=== PATIENT | female | born 1945 | race Caucasian/White ===

== ENCOUNTER → 2016-12-28 | Outpatient (CLI) | payer MEDICARE ==
--- NOTE | 2016-12-28 14:10 | KCIC ---
Examination: MRI of the right shoulder without contrast. HISTORY History of right shoulder pain, decreased range of motion. COMPARISON None available. TECHNIQUE Multiplanar, multisequence MR imaging of the right shoulder was performed without contrast. FINDINGS The long head of the biceps tendon is within the bicipital groove. The attachment of the long head of the biceps tendon to superior labral anchor grossly appears intact. The attachment of the subscapularis tendon grossly appears intact. There is moderate increased signal identified in the supraspinatus, infraspinatus tendon likely due tendinosis. On series 9 image #12 there is a small focus of increased T2 signal identified in the interstitial portion of the supraspinatus tendon extending towards the bursal side could be a smaller tear. There is faint increased signal identified in the undersurface of the infraspinatus tendon. Some of the fibers of the infraspinatus tendon at its attachment are slightly frayed. Small amount of fluid identified in the subacromial subdeltoid bursa. Moderate acromioclavicular joint osteoarthrosis identified. Mild the acromion is type 2. Mild increased signal identified throughout the labrum likely degeneration. Moderate acromioclavicular joint osteoarthrosis. Small shoulder joint effusion is identified prevoid of the muscle bulk and grossly appears unremarkable. The teres minor tendon grossly appears intact. IMPRESSION - Mild increased signal identified in the interstitium of the supraspinatus tendon at its attachment to greater tuberosity in the midportion with extension towards the bursa probably bursal sided tear with a small amount of fluid identified in subacromial subdeltoid bursa. No evidence of full-thickness tear identified. - Moderate tendinosis supraspinatus, infraspinatus tendons. There is mild fraying of the infraspinatus tendon at its attachment to the greater tuberosity. - Moderate degenerative changes acromioclavicular joint, glenohumeral joint. - Mild degeneration of the labrum. Electronically signed by: Walter Dozier (Dec 28, 2016 14:09:48)
== END | disposition home or self-care (01) ==
LOC: KCIC MRI 12:57
PROVIDERS: ATTEND Orthopaedic Surgery Sports Medicine
DX: M75.101 Unspecified rotator cuff tear or rupture of right shoulder, not specified as traumatic (principal)
CPT/HCPCS: 73221

== ENCOUNTER → 2017-12-17 | Outpatient (CLI) | payer MEDICARE | END | disposition home or self-care (01) | LOC: KCIC MAMMO 11:45 | DX: Z12.31 Encounter for screening mammogram for malignant neoplasm of breast (principal) | CPT/HCPCS: 77067 ==

== ENCOUNTER → 2018-03-13 | Outpatient (CLI) | payer MEDICARE | END | disposition home or self-care (01) | LOC: KCIC MRI 16:32 | DX: M51.36 Other intervertebral disc degeneration, lumbar region (principal); M43.16 Spondylolisthesis, lumbar region; M51.46 Schmorl's nodes, lumbar region | CPT/HCPCS: 72148 ==

== ENCOUNTER → 2018-12-18 | Outpatient (CLI) | payer MEDICARE ==
--- NOTE | 2018-12-18 14:53 | KCIC ---
Bilateral digital screening mammograms with 3-D tomosynthesis: Reason for examination: Routine screening. Comparison is made to previous studies dated 12/17/2017 and 11/08/2016. Bilateral mammograms in CC and oblique projections were obtained with 2-D imaging and 3-D tomosynthesis imaging on a Siemens Inspiration unit and reviewed on the workstation. Interpretation was made with the benefit of CAD. The skin and nipples show no abnormalities. No abnormal axillary lymph nodes are seen. The breast parenchyma shows scattered fatty and fibroglandular density. (Breast density: Category B.) There continues to be a small nodular density in the 8:00 position of the left breast anteriorly which is stable. There are no new dominant masses, suspicious calcifications or architectural distortion. Benign calcifications are present. Impression: No evidence of malignancy. Recommend routine screening. BI-RAD Category 2: Benign. "Our facility is accredited by the [employer] Mammography Program." This patient's information has been entered into a reminder system for the patient to be notified with the results of her examination and a target date for the next mammogram. Electronically signed by: Dominique Arnett MD (12/18/2018 2:49 PM) [id number]
== END | disposition home or self-care (01) ==
LOC: KCIC MAMMO 09:56
PROVIDERS: ATTEND Nurse Practitioner Family
DX: Z12.31 Encounter for screening mammogram for malignant neoplasm of breast (principal)
CPT/HCPCS: 77063; 77067

== ENCOUNTER 2019-04-08 19:08 | Inpatient (IN) | payer MEDICARE ==
[~2019-04-08] VITALS: Ht 165.1 cm; Wt 78.0 kg
[2019-04-08] MEDS ORDERED: IV NORMAL SALINE 1000ML BAG 1,000 ML IV SCH (19:33)
[2019-04-08 19:42] LABS: BASO % 0 % (0-3); EOS # 0.2 x10^3/uL (0.0-0.7); EOS % 1 % (0-3); HEMATOCRIT 43.6 % (36.0-47.0); HEMOGLOBIN 14.4 g/dL (12.0-15.5); LYMPH # 1.5 x10^3/uL (1.0-4.8); LYMPH % 8 % (24-48); MEAN CORPUSCULAR HEMOGLOBIN 29 pg (25-35); MEAN CORPUSCULAR HGB CONC 33 g/dL (31-37); MEAN CORPUSCULAR VOLUME 87 fL (79-100); MONO % 5 % (0-9); NEUT # 15.5 x10^3uL (1.8-7.7); NEUT % 85 % (31-73); PLATELET COUNT 296 x10^3/uL (140-400); RED BLOOD COUNT 5.02 x10^6/uL (3.50-5.40); WHITE BLOOD COUNT 18.2 x10^3/uL (4.0-11.0)
[2019-04-08] MEDS ORDERED: ONDANSETRON PF 4 MG/2 ML VIAL. IV ONE (19:45)
[2019-04-08] MEDS ORDERED: fentaNYL PF VIAL 100 MCG/2 ML VIAL IV ONE (19:45)
[2019-04-08 19:51] LABS: CALCIUM 8.5 mg/dL (8.5-10.1); CREATININE 1.1 mg/dL (0.6-1.0); GFR 48.4; POTASSIUM 3.3 mmol/L (3.5-5.1); PROTHROMBIN TIME PATIENT 12.8 SEC (11.7-14.0)
[2019-04-08 19:57] LABS: ALBUMIN 3.9 g/dL (3.4-5.0); TOTAL BILIRUBIN 0.4 mg/dL (0.2-1.0); TOTAL PROTEIN 7.8 g/dL (6.4-8.2)
[2019-04-08 20:05] LABS: % EOS 2 % (0-5); % LYMPHS 12 % (24-48); % MONOS 4 % (0-10); % SEGS 82 % (35-66); PLT ESTIMATE ADEQUATE (ADEQUATE)
[2019-04-08 20:05] LABS: BILIRUBIN,URINE NEGATIVE (NEG); CLARITY,URINE CLEAR; COLOR,URINE YELLOW; NITRITE,URINE NEGATIVE (NEG); PROTEIN,URINE 100 mg/dL (NEG-TRACE); UROBILINOGEN,URINE 0.2 mg/dL (0.2 mg/dL)
[2019-04-08 20:11] LABS: SQUAMOUS EPITHELIAL CELL,UR FEW /LPF
[2019-04-08 20:12] LABS: BACTERIA,URINE 0 /HPF (0-FEW)
[2019-04-08 20:13] LABS: AMORPHOUS SEDIMENT,UR PRESENT /HPF
[2019-04-08] MEDS ORDERED: IV NORMAL SALINE 1000ML BAG 1,000 ML IV ONE (20:30)
[2019-04-08] MEDS ORDERED: PIPERACILLIN/TAZOBACTAM 3.375 GM in IV NORMAL SALINE 50ML 50 ML IV ONE (20:30)
--- NOTE | 2019-04-08 20:50 | RAD ---
CT scan abdomen and pelvis without contrast 04/08/2019 CLINICAL HISTORY: Right lower quadrant abdominal pain. TECHNIQUE: Unenhanced, contiguous, 5 mm axial sections were obtained through abdomen and pelvis. One or more of the following individualized dose reduction techniques were utilized for this study: 1. Automated exposure control. 2. Adjustment of the mA and/or kV according to patient size. 3. Use of iterative reconstruction technique. FINDINGS: Images through the lung bases demonstrate minimal dependent subsegmental atelectasis bilaterally. The liver parenchyma has a decreased attenuation consistent with fatty infiltration. The spleen, pancreas, adrenal glands and kidneys are within normal limits. Atherosclerotic calcification of the abdominal aorta is seen. The abdominal aorta tapers normally. Small calcified gallstones are seen within the gallbladder. No free fluid or free air is seen within the abdomen. Air and stool is seen throughout the colon. Appendicoliths are seen within the appendix. The appendix is dilated measuring 1.5 cm in diameter. It has a thickened wall. Increased density is seen within the adjacent fat. These findings are consistent with acute appendicitis. No abnormal fluid collection is seen to suggest evidence of an abscess. Images through the pelvis. The urinary bladder distended with urine. No free fluid is seen. Very mild S-shaped curvature of the thoracolumbar spine is seen. Degenerative changes are seen involving the lower thoracic and throughout the lumbar spine and both hips. IMPRESSION: Findings are seen consistent with acute appendicitis. Electronically signed by: Pablo Chance MD (04/08/2019 8:47 PM) [facility]
[2019-04-08] MEDS ORDERED: cefTRIAXone IV Push 1 GM VIAL. IVP ONE (21:00)
[2019-04-08] MEDS ORDERED: BUPIVAC MPF-EPI 0.5%-1:200000 30 ML VIAL. ONE (21:12)
[2019-04-08] MEDS ORDERED: levOFLOXacin PER PHARMACY. MC PRN (21:15)
[2019-04-08] MEDS ORDERED: ONDANSETRON PF 4 MG/2 ML VIAL. IV PRN ×2 (21:15→22:15)
[2019-04-08] MEDS ORDERED: ACETAMINOPHEN 500 MG TABLET PO PRN (21:15)
[2019-04-08] MEDS ORDERED: POTASSIUM CL 20MEQ D5-0.45NACL 1,000 ML IV SCH (21:15)
[2019-04-08] MEDS ORDERED: fentaNYL PF VIAL 100 MCG/2 ML VIAL IV PRN ×3 (21:15→22:15)
--- NOTE | 2019-04-08 21:25 | PHYS DOC ---
Past Medical History Past Medical History: Diabetes-Type II, Hypertension, Stroke Past Surgical History: Hysterectomy Alcohol Use: None Drug Use: None Adult General Chief Complaint Chief Complaint: ABDOMINAL PAIN HPI HPI Patient is a 74 year old female who presents with complaining of lower abdominal pain. Patient complaining of gradual onset of right lower quadrant pain for the last several hours as a constant aching and sharp pain with nausea and anorexia. Patient denies fever and chills, diarrhea and constipation, urinary symptom, history of the same pain. Patient said the pain getting force with movement and activity. Patient rated her pain 7/10. Review of Systems Review of Systems Constitutional: Denies fever or chills [] Eyes: Denies change in visual acuity, redness, or eye pain [] HENT: Denies nasal congestion or sore throat [] Respiratory: Denies cough or shortness of breath [] Cardiovascular: No additional information not addressed in HPI [] GI: Reports abdominal pain, nausea, denies vomiting, bloody stools or diarrhea [] : Denies dysuria or hematuria [] Musculoskeletal: Denies back pain or joint pain [] Integument: Denies rash or skin lesions [] Neurologic: Denies headache, focal weakness or sensory changes [] Endocrine: Denies polyuria or polydipsia [] All other systems were reviewed and found to be within normal limits, except as documented in this note. Current Medications Current Medications Current Medications Medications (Trade) Dose Ordered Sig/[facility] Start Time Stop Time Status Last Admin Dose Admin Fentanyl Citrate (Fentanyl 2ml Vial) 50 mcg 1X ONCE 04/08/19 19:45 04/08/19 19:56 DC 04/08/19 20:05 50 MCG Ondansetron HCl (Zofran) 4 mg 1X ONCE 04/08/19 19:45 04/08/19 19:56 DC 04/08/19 20:04 4 MG Piperacillin Sod/ Tazobactam Sod 3.375 gm/Sodium Chloride 50 ml @ 100 mls/hr 1X ONCE 04/08/19 20:30 04/08/19 21:58 DC Sodium Chloride 1,000 ml @ 150 mls/hr 1X ONCE 04/08/19 20:30 04/08/19 21:58 DC Allergies Allergies Physical Exam Physical Exam Constitutional: Well developed, well nourished, mild distress, non-toxic appearance. [] HENT: Normocephalic, atraumatic, oropharynx dry, no oral exudates, nose normal. [] Eyes: PERRLA, EOMI, conjunctiva normal, no discharge. [] Neck: Normal range of motion, no tenderness, supple, no stridor. [] Cardiovascular:Heart rate regular rhythm, no murmur [] Lungs & Thorax: Bilateral breath sounds clear to auscultation [] Abdomen: Bowel sounds normal, soft, right lower quadrant tenderness and rebound tenderness with positive McBurney sign, no masses, no pulsatile masses. [] Skin: Warm, dry, no erythema, no rash. [] Back: No tenderness, no CVA tenderness. [] Extremities: No tenderness, no cyanosis, no clubbing, ROM intact, no edema. [] Neurologic: Alert and oriented X 3, normal motor function, normal sensory function, no focal deficits noted. [] Psychologic: Affect normal, judgement normal, mood normal. [] Current Patient Data Vital Signs Vital Signs Date Time Temp Pulse Resp B/P (MAP) Pulse Ox O2 Delivery O2 Flow Rate FiO2 04/08/19 20:12 97 161/72 (101) 96 Room Air 04/08/19 19:36 99.0 18 99.0 Lab Values Laboratory Tests Test 04/08/19 19:30 04/08/19 20:00 White Blood Count 18.2 x10^3/uL (4.0-11.0) H Red Blood Count 5.02 x10^6/uL (3.50-5.40) Hemoglobin 14.4 g/dL (12.0-15.5) Hematocrit 43.6 % (36.0-47.0) Mean Corpuscular Volume 87 fL (79-100) Mean Corpuscular Hemoglobin 29 pg (25-35) Mean Corpuscular Hemoglobin Concent 33 g/dL (31-37) Red Cell Distribution Width 13.0 % (11.5-14.5) Platelet Count 296 x10^3/uL (140-400) Neutrophils (%) (Auto) 85 % (31-73) H Lymphocytes (%) (Auto) 8 % (24-48) L Monocytes (%) (Auto) 5 % (0-9) Eosinophils (%) (Auto) 1 % (0-3) Basophils (%) (Auto) 0 % (0-3) Neutrophils # (Auto) 15.5 x10^3uL (1.8-7.7) H Lymphocytes # (Auto) 1.5 x10^3/uL (1.0-4.8) Monocytes # (Auto) 1.0 x10^3/uL (0.0-1.1) Eosinophils # (Auto) 0.2 x10^3/uL (0.0-0.7) Basophils # (Auto) 0.0 x10^3/uL (0.0-0.2) Segmented Neutrophils % 82 % (35-66) H Lymphocytes % 12 % (24-48) L Monocytes % 4 % (0-10) Eosinophils % 2 % (0-5) Platelet Estimate Adequate (ADEQUATE) Prothrombin Time 12.8 SEC (11.7-14.0) Prothrombin Time INR 1.0 (0.8-1.1) Sodium Level 138 mmol/L (136-145) Potassium Level 3.3 mmol/L (3.5-5.1) L Chloride Level 96 mmol/L (98-107) L Carbon Dioxide Level 28 mmol/L (21-32) Anion Gap 14 (6-14) Blood Urea Nitrogen 16 mg/dL (7-20) Creatinine 1.1 mg/dL (0.6-1.0) H Estimated GFR (Cockcroft-Gault) 48.4 BUN/Creatinine Ratio 15 (6-20) Glucose Level 301 mg/dL (70-99) H Lactic Acid Level 3.4 mmol/L (0.4-2.0) H Calcium Level 8.5 mg/dL (8.5-10.1) Total Bilirubin 0.4 mg/dL (0.2-1.0) Aspartate Amino Transferase (AST) 19 U/L (15-37) Alanine Aminotransferase (ALT) 47 U/L (14-59) Alkaline Phosphatase 75 U/L (46-116) Creatine Kinase 106 U/L (26-192) Total Protein 7.8 g/dL (6.4-8.2) Albumin 3.9 g/dL (3.4-5.0) Albumin/Globulin Ratio 1.0 (1.0-1.7) Lipase 284 U/L (73-393) Urine Collection Type Unknown Urine Color Yellow Urine Clarity Clear Urine pH 5.0 Urine Specific [place] 1.025 Urine Protein 100 mg/dL (NEG-TRACE) Urine Glucose (UA) >=1000 mg/dL (NEG) Urine Ketones (Stick) Negative mg/dL (NEG) Urine Blood Negative (NEG) Urine Nitrite Negative (NEG) Urine Bilirubin Negative (NEG) Urine Urobilinogen Dipstick 0.2 mg/dL (0.2 mg/dL) Urine Leukocyte Esterase Negative (NEG) Urine RBC 1-2 /HPF (0-2) Urine WBC 5-10 /HPF (0-4) Urine Squamous Epithelial Cells Few /LPF Urine Amorphous Sediment Present /HPF Urine Bacteria 0 /HPF (0-FEW) Urine Mucus Slight /LPF Laboratory Tests 04/08/19 19:30 Laboratory Tests 04/08/19 19:30 EKG EKG [] Radiology/Procedures [facility] [address] [place] [address] IMAGING REPORT Signed PATIENT: ALONZO JEAN ACCOUNT: [id number] : 1945 LOCATION: ER AGE: 74 SEX: F EXAM STATUS: REG ER ORD. PHYSICIAN: STEPHANY BEGUM MD REASON: right lower quadrant pain, possible appendicitis PROCEDURE: CT ABDOMEN PELVIS WO CONTRAST CT scan abdomen and pelvis without contrast 04/08/2019 CLINICAL HISTORY: Right lower quadrant abdominal pain. TECHNIQUE: Unenhanced, contiguous, 5 mm axial sections were obtained through abdomen and pelvis. One or more of the following individualized dose reduction techniques were utilized for this study: 1. Automated exposure control. 2. Adjustment of the mA and/or kV according to patient size. 3. Use of iterative reconstruction technique. FINDINGS: Images through the lung bases demonstrate minimal dependent subsegmental atelectasis bilaterally. The liver parenchyma has a decreased attenuation consistent with fatty infiltration. The spleen, pancreas, adrenal glands and kidneys are within normal limits. Atherosclerotic calcification of the abdominal aorta is seen. The abdominal aorta tapers normally. Small calcified gallstones are seen within the gallbladder. No free fluid or free air is seen within the abdomen. Air and stool is seen throughout the colon. Appendicoliths are seen within the appendix. The appendix is dilated measuring 1.5 cm in diameter. It has a thickened wall. Increased density is seen within the adjacent fat. These findings are consistent with acute appendicitis. No abnormal fluid collection is seen to suggest evidence of an abscess. Images through the pelvis. The urinary bladder distended with urine. No free fluid is seen. Very mild S-shaped curvature of the thoracolumbar spine is seen. Degenerative changes are seen involving the lower thoracic and throughout the lumbar spine and both hips. IMPRESSION: Findings are seen consistent with acute appendicitis. Electronically signed by: Pablo Chance MD (04/08/2019 8:47 PM) [facility] DICTATED and SIGNED BY: PABLO CHANCE MD DATE: 04/08/192046 Course & Med Decision Making Course & Med Decision Making Pertinent Labs and Imaging studies reviewed. (See chart for details) Evaluation of patient in ER showed 74-year-old male patient with complaining of right lower quadrant pain and anorexia for several others. Patient had positive McBurney sign with white count of 18,000 and lactic acid of 2.4. CT of abdomen and pelvis showed acute appendicitis. Dr. Machado on-call surgeon was consulted at 2052 and evaluated the patient in ER and plan to take patient to the OR. Patient treated with IV fluid and antibiotic for sepsis and appendicitis. Patient also had Zofran and fentanyl and felt better.Patient requiring admission for further evaluation and treatment. Discussed with Dr. Tyson who is in agreement with admission. Discussed findings and plan with patient and family, who acknowledge understanding and agreement. Dragon Disclaimer Dragon Disclaimer This electronic medical record was generated, in whole or in part, using a voice recognition dictation system. Departure Departure Impression: Primary Impression: Acute appendicitis Additional Impressions: Sepsis Hyperglycemia Uncontrolled diabetes mellitus Disposition: 09 ADMITTED INPATIENT Condition: IMPROVED Referrals: ALEXEY CAN APRN (PCP) Problem Qualifiers Primary Impression: Acute appendicitis Acute appendicitis type: unspecified acute appendicitis type Qualified Codes: K35.80 - Unspecified acute appendicitis Additional Impressions: Sepsis Sepsis type: sepsis due to unspecified organism Qualified Codes: A41.9 - Sepsis, unspecified organism Uncontrolled diabetes mellitus Diabetes mellitus type: other specified (including VIC) Glycemic state: with hyperglycemia Qualified Codes: E13.65 - Other specified diabetes mellitus with hyperglycemia STEPHANY BEGUM MD April 08, 2019 21:25
--- NOTE | 2019-04-08 21:44 | PDOC2 ---
CONSULT Date of Consult Date of Consult DATE: 04/08/19 TIME: 21:38 Reason for Consult Reason for Consult: acute appendicitis Referring Physician Referring Physician: HUSSAIN Identification/Chief Complaint Chief Complaint RLQ pain, nausea Source Source: Chart review, Patient History of Present Illness Reason for Visit: Ms Dodson is a 74 yo lady with RLQ pain and nausea. CT done in the ED shows an acute appendicitis. Past Medical History Cardiovascular: No pertinent hx Pulmonary: No pertinent hx CENTRAL NERVOUS SYSTEM: CVA GI: Other (C diff colitis) Infectious disease: Other Endocrine: Diabetes, Hypothyroidism Past Surgical History Past Surgical History: Hysterectomy, Other (thyroidectomy) Family History Family History: No Significant Social History No Current Problem List Problem List Problems Medical Problems: (1) Acute appendicitis Status: Acute (2) Hyperglycemia Status: Acute (3) Sepsis Status: Acute (4) Uncontrolled diabetes mellitus Status: Acute Current Medications Current Medications Current Medications Sodium Chloride 1,000 ml @ 1,000 mls/hr Q1H IV Last administered on 04/08/19at 20:04; Start 04/08/19 at 19:33; Stop 04/08/19 at 20:32; Status DC Fentanyl Citrate (Fentanyl 2ml Vial) 50 mcg 1X ONCE IV Last administered on 04/08/19at 20:05; Start 04/08/19 at 19:45; Stop 04/08/19 at 19:56; Status DC Ondansetron HCl (Zofran) 4 mg 1X ONCE IV Last administered on 04/08/19at 20:04; Start 04/08/19 at 19:45; Stop 04/08/19 at 19:56; Status DC Piperacillin Sod/ Tazobactam Sod 3.375 gm/Sodium Chloride 50 ml @ 100 mls/hr 1X ONCE IV ; Start 04/08/19 at 20:30; Stop 04/08/19 at 20:52; Status DC Sodium Chloride 1,000 ml @ 150 mls/hr 1X ONCE IV ; Start 04/08/19 at 20:30; Stop 04/09/19 at 03:09 Ceftriaxone Sodium (Rocephin) 1 gm 1X ONCE IVP ; Start 04/08/19 at 21:00; Stop 04/08/19 at 21:05; Status DC Metronidazole 100 ml @ 100 mls/hr 1X ONCE IV ; Start 04/08/19 at 21:00; Stop 04/08/19 at 21:59 Levofloxacin/ Dextrose (Levaquin Per Pharmacy) 1 each PRN DAILY PRN MC SEE COMMENTS; Start 04/08/19 at 21:15 Fentanyl Citrate (Fentanyl 2ml Vial) 25 mcg PRN Q2HR PRN IV PAIN; Start 04/08/19 at 21:15 Acetaminophen (Tylenol) 500 mg PRN Q6HRS PRN PO MILD PAIN / TEMP; Start 04/08/19 at 21:15 Ondansetron HCl (Zofran) 4 mg PRN Q6HRS PRN IV NAUSEA/VOMITING; Start 04/08/19 at 21:15 Potassium Chloride/Dextrose/ Sod Cl 1,000 ml @ 75 mls/hr [id number] IV ; Start 04/08/19 at 21:15 Levofloxacin/ Dextrose 100 ml @ 100 mls/hr Q24H IV ; Start 04/08/19 at 21:30 Allergies Allergies: Coded Allergies: Penicillins (Verified Adverse Reaction, Intermediate, itching , 04/08/19) ROS General: YES: Other Gastrointestinal: Yes Nausea, Yes Abdominal Pain Physical Exam General: Alert, No acute distress HEENT: Atraumatic Lungs: Normal air movement Heart: Regular rate Abdomen: Soft, Other (TTP in the RLQ) Vitals VITALS Vital Signs Date Time Temp Pulse Resp B/P (MAP) Pulse Ox O2 Delivery O2 Flow Rate FiO2 04/08/19 20:05 97 Room Air 04/08/19 19:36 99.0 111 18 167/111 (129) 99.0 Labs Labs Laboratory Tests Test 04/08/19 19:30 04/08/19 20:00 White Blood Count 18.2 x10^3/uL (4.0-11.0) Red Blood Count 5.02 x10^6/uL (3.50-5.40) Hemoglobin 14.4 g/dL (12.0-15.5) Hematocrit 43.6 % (36.0-47.0) Mean Corpuscular Volume 87 fL (79-100) Mean Corpuscular Hemoglobin 29 pg (25-35) Mean Corpuscular Hemoglobin Concent 33 g/dL (31-37) Red Cell Distribution Width 13.0 % (11.5-14.5) Platelet Count 296 x10^3/uL (140-400) Neutrophils (%) (Auto) 85 % (31-73) Lymphocytes (%) (Auto) 8 % (24-48) Monocytes (%) (Auto) 5 % (0-9) Eosinophils (%) (Auto) 1 % (0-3) Basophils (%) (Auto) 0 % (0-3) Neutrophils # (Auto) 15.5 x10^3uL (1.8-7.7) Lymphocytes # (Auto) 1.5 x10^3/uL (1.0-4.8) Monocytes # (Auto) 1.0 x10^3/uL (0.0-1.1) Eosinophils # (Auto) 0.2 x10^3/uL (0.0-0.7) Basophils # (Auto) 0.0 x10^3/uL (0.0-0.2) Segmented Neutrophils % 82 % (35-66) Lymphocytes % 12 % (24-48) Monocytes % 4 % (0-10) Eosinophils % 2 % (0-5) Platelet Estimate Adequate (ADEQUATE) Prothrombin Time 12.8 SEC (11.7-14.0) Prothromb Time International Ratio 1.0 (0.8-1.1) Sodium Level 138 mmol/L (136-145) Potassium Level 3.3 mmol/L (3.5-5.1) Chloride Level 96 mmol/L (98-107) Carbon Dioxide Level 28 mmol/L (21-32) Anion Gap 14 (6-14) Blood Urea Nitrogen 16 mg/dL (7-20) Creatinine 1.1 mg/dL (0.6-1.0) Estimated GFR (Cockcroft-Gault) 48.4 BUN/Creatinine Ratio 15 (6-20) Glucose Level 301 mg/dL (70-99) Lactic Acid Level 3.4 mmol/L (0.4-2.0) Calcium Level 8.5 mg/dL (8.5-10.1) Total Bilirubin 0.4 mg/dL (0.2-1.0) Aspartate Amino Transf (AST/SGOT) 19 U/L (15-37) Alanine Aminotransferase (ALT/SGPT) 47 U/L (14-59) Alkaline Phosphatase 75 U/L (46-116) Creatine Kinase 106 U/L (26-192) Total Protein 7.8 g/dL (6.4-8.2) Albumin 3.9 g/dL (3.4-5.0) Albumin/Globulin Ratio 1.0 (1.0-1.7) Lipase 284 U/L (73-393) Urine Collection Type Unknown Urine Color Yellow Urine Clarity Clear Urine pH 5.0 Urine Specific [place] 1.025 Urine Protein 100 mg/dL (NEG-TRACE) Urine Glucose (UA) >=1000 mg/dL (NEG) Urine Ketones (Stick) Negative mg/dL (NEG) Urine Blood Negative (NEG) Urine Nitrite Negative (NEG) Urine Bilirubin Negative (NEG) Urine Urobilinogen Dipstick 0.2 mg/dL (0.2 mg/dL) Urine Leukocyte Esterase Negative (NEG) Urine RBC 1-2 /HPF (0-2) Urine WBC 5-10 /HPF (0-4) Urine Squamous Epithelial Cells Few /LPF Urine Amorphous Sediment Present /HPF Urine Bacteria 0 /HPF (0-FEW) Urine Mucus Slight /LPF Laboratory Tests Test 04/08/19 19:30 04/08/19 20:00 White Blood Count 18.2 x10^3/uL (4.0-11.0) Red Blood Count 5.02 x10^6/uL (3.50-5.40) Hemoglobin 14.4 g/dL (12.0-15.5) Hematocrit 43.6 % (36.0-47.0) Mean Corpuscular Volume 87 fL (79-100) Mean Corpuscular Hemoglobin 29 pg (25-35) Mean Corpuscular Hemoglobin Concent 33 g/dL (31-37) Red Cell Distribution Width 13.0 % (11.5-14.5) Platelet Count 296 x10^3/uL (140-400) Neutrophils (%) (Auto) 85 % (31-73) Lymphocytes (%) (Auto) 8 % (24-48) Monocytes (%) (Auto) 5 % (0-9) Eosinophils (%) (Auto) 1 % (0-3) Basophils (%) (Auto) 0 % (0-3) Neutrophils # (Auto) 15.5 x10^3uL (1.8-7.7) Lymphocytes # (Auto) 1.5 x10^3/uL (1.0-4.8) Monocytes # (Auto) 1.0 x10^3/uL (0.0-1.1) Eosinophils # (Auto) 0.2 x10^3/uL (0.0-0.7) Basophils # (Auto) 0.0 x10^3/uL (0.0-0.2) Segmented Neutrophils % 82 % (35-66) Lymphocytes % 12 % (24-48) Monocytes % 4 % (0-10) Eosinophils % 2 % (0-5) Platelet Estimate Adequate (ADEQUATE) Prothrombin Time 12.8 SEC (11.7-14.0) Prothromb Time International Ratio 1.0 (0.8-1.1) Sodium Level 138 mmol/L (136-145) Potassium Level 3.3 mmol/L (3.5-5.1) Chloride Level 96 mmol/L (98-107) Carbon Dioxide Level 28 mmol/L (21-32) Anion Gap 14 (6-14) Blood Urea Nitrogen 16 mg/dL (7-20) Creatinine 1.1 mg/dL (0.6-1.0) Estimated GFR (Cockcroft-Gault) 48.4 BUN/Creatinine Ratio 15 (6-20) Glucose Level 301 mg/dL (70-99) Lactic Acid Level 3.4 mmol/L (0.4-2.0) Calcium Level 8.5 mg/dL (8.5-10.1) Total Bilirubin 0.4 mg/dL (0.2-1.0) Aspartate Amino Transf (AST/SGOT) 19 U/L (15-37) Alanine Aminotransferase (ALT/SGPT) 47 U/L (14-59) Alkaline Phosphatase 75 U/L (46-116) Creatine Kinase 106 U/L (26-192) Total Protein 7.8 g/dL (6.4-8.2) Albumin 3.9 g/dL (3.4-5.0) Albumin/Globulin Ratio 1.0 (1.0-1.7) Lipase 284 U/L (73-393) Urine Collection Type Unknown Urine Color Yellow Urine Clarity Clear Urine pH 5.0 Urine Specific [place] 1.025 Urine Protein 100 mg/dL (NEG-TRACE) Urine Glucose (UA) >=1000 mg/dL (NEG) Urine Ketones (Stick) Negative mg/dL (NEG) Urine Blood Negative (NEG) Urine Nitrite Negative (NEG) Urine Bilirubin Negative (NEG) Urine Urobilinogen Dipstick 0.2 mg/dL (0.2 mg/dL) Urine Leukocyte Esterase Negative (NEG) Urine RBC 1-2 /HPF (0-2) Urine WBC 5-10 /HPF (0-4) Urine Squamous Epithelial Cells Few /LPF Urine Amorphous Sediment Present /HPF Urine Bacteria 0 /HPF (0-FEW) Urine Mucus Slight /LPF Images Images CT done earlier consistent with acute appendicitis Assessment/Plan Assessment/Plan acute appendicitis DM HPT l/s appendectomy discussed risks of l/s appy with Ms Dodson and her daughter at the bedside including but not limited to bleeding, infection, injury to bowel, bladder needing further surgery, possibility this is NOT an acute appendicitis (i.e gastroenteritis, mesenteric adenitis) she will proceed Thanks for consult FER ALMARAZ MD April 08, 2019 21:44
[2019-04-08] MEDS ORDERED: PROPOFOL 20 ML IV ONE (22:10)
[2019-04-08] MEDS ORDERED: LIDOCAINE 2% PF 5 ML VIAL. ONE (22:10)
[2019-04-08] MEDS ORDERED: DEXAMETHASONE SOD PHOS 4 MG/ML VIAL ONE (22:11)
[2019-04-08] MEDS ORDERED: ONDANSETRON PF 4 MG/2 ML VIAL. ONE (22:11)
[2019-04-08] MEDS ORDERED: ROCURONIUM 50 MG/5 ML VIAL. ONE (22:11)
[2019-04-08] MEDS ORDERED: ePHEDrine PF IN SALINE 50 MG/10 ML SYRINGE. IV ONE (22:11)
[2019-04-08] MEDS ORDERED: SUCCINYLCHOLINE 200 MG/10 ML VIAL. ONE (22:12)
[2019-04-08] MEDS ORDERED: fentaNYL PF VIAL 100 MCG/2 ML VIAL ONE (22:13)
[2019-04-08] MEDS ORDERED: IV RINGERS,LACTATED 1000ML 1,000 ML IV SCH (22:15)
[2019-04-08] MEDS ORDERED: PROCHLORPERAZINE 10 MG/2 ML VIAL. IV PRN (22:15)
[2019-04-08] MEDS ORDERED: HYDROmorphone 2 MG/ML VIAL IV PRN (22:15)
[2019-04-08] MEDS ORDERED: MORPHINE SULFATE 2 MG/ML VIAL. IV PRN (22:15)
[2019-04-08] MEDS: POTASSIUM CL 20MEQ-0.45% NACL 1,000 ML IV ONE (22:15)
[2019-04-08] MEDS: INSULIN LISPRO 100 UNIT/ML 3ML VIAL. SQ PRN (22:43)
[2019-04-08] MEDS ORDERED: GLYCOPYRROLATE 1 MG/5 ML VIAL. ONE (23:17)
[2019-04-08] MEDS ORDERED: NEOSTIGMINE METHYLSULFATE 5 MG/5 ML SYRINGE. ONE (23:17)
[2019-04-08] MEDS ORDERED: ESMOLOL 100 MG/10 ML VIAL. IVP ONE (23:29)
[2019-04-09] VITALS (7 sets, daily range): BP systolic 110–137; BP diastolic 54–74
--- NOTE | 2019-04-09 00:06 | PDOC ---
BRIEF OPERATIVE NOTE Date: April 09, 2019 Pre-Op Diagnosis acute appendicitis Post-Op Diagnosis gangrenous appendicitis Procedure Performed l/s appendectomy Surgeon Carter Anesthesia Type: General Blood Loss 25cc IV Fluid 500cc Urine Output 100cc Specimens Obtained appendix Findings gangrenous appendicitis Complications none Operative Note Wk # [id number] FER ALMARAZ MD April 09, 2019 00:06
[2019-04-09] MEDS: INSULIN LISPRO 100 UNIT/ML 3ML VIAL. SQ PRN (00:13)
[2019-04-09] MEDS ORDERED: HYDROmorphone 2 MG/ML VIAL IV PRN (00:15)
[2019-04-09] MEDS ORDERED: HYDROcodone/APAP 5/325MG 1 TAB TABLET PO PRN (00:15)
[2019-04-09] MEDS ORDERED: diphenhydrAMINE HCL 25 MG CAPSULE PO PRN (00:15)
[2019-04-09] MEDS ORDERED: DEXTROSE 50% 25 GM / 50ML DISP.SYRIN. IV PRN ×2 (00:15→03:00)
[2019-04-09] MEDS ORDERED: 0.9 % SODIUM CHLORIDE 10 ML DISP.SYRIN. IV PRN (00:15)
[2019-04-09] MEDS: POTASSIUM CL 20MEQ-0.45% NACL 1,000 ML IV SCH ×2 (00:30→08:46)
[2019-04-09] MEDS ORDERED: ONDANSETRON PF 4 MG/2 ML VIAL. IV PRN (00:30)
[2019-04-09] MEDS: POTASSIUM CL 20MEQ-0.45% NACL 1,000 ML IV ONE (01:26)
--- NOTE | 2019-04-09 01:58 | NUR ---
This nurse called Meghan, ICU charge nurse for a positive sepsis screen. Second Lactic Acid ordered. Wait for lab results. Will continue to monitor.
[2019-04-09 02:28] LABS: BASO % 0 % (0-3); EOS % 0 % (0-3); HEMATOCRIT 39.5 % (36.0-47.0); HEMOGLOBIN 13.1 g/dL (12.0-15.5); LYMPH # 0.6 x10^3/uL (1.0-4.8); LYMPH % 4 % (24-48); MEAN CORPUSCULAR HEMOGLOBIN 29 pg (25-35); MEAN CORPUSCULAR HGB CONC 33 g/dL (31-37); MEAN CORPUSCULAR VOLUME 86 fL (79-100); MONO # 0.3 x10^3/uL (0.0-1.1); MONO % 2 % (0-9); NEUT # 16.6 x10^3uL (1.8-7.7); NEUT % 94 % (31-73); PLATELET COUNT 278 x10^3/uL (140-400); RED BLOOD COUNT 4.58 x10^6/uL (3.50-5.40); RED CELL DISTRIBUTION WIDTH 13.2 % (11.5-14.5); WHITE BLOOD COUNT 17.6 x10^3/uL (4.0-11.0)
[2019-04-09 02:29] LABS: CALCIUM 7.7 mg/dL (8.5-10.1); GFR 54.1; POTASSIUM 3.4 mmol/L (3.5-5.1)
--- NOTE | 2019-04-09 02:44 | NUR ---
Dr. Tyson notified of positive sepsis screen. No new orders received. Will continue to monitor.
[2019-04-09] MEDS ORDERED: METF10007 PO (03:15)
[2019-04-09] MEDS ORDERED: LISI-130 PO (03:17)
[2019-04-09] MEDS ORDERED: GLYB5TAB3 PO (03:19)
[2019-04-09] MEDS ORDERED: LEVO175T5 PO (03:21)
[2019-04-09] MEDS ORDERED: LEVO150T5 PO (03:23)
[2019-04-09] MEDS ORDERED: SITA100T PO (03:24)
[2019-04-09] MEDS ORDERED: ASPI-702 PO (03:25)
[2019-04-09] MEDS ORDERED: FERR325T14 PO (03:26)
[2019-04-09] MEDS ORDERED: INDA2.5T PO (03:26)
[2019-04-09] MEDS: ENOXAPARIN 40 MG/0.4 ML SYRINGE. SQ SCH (08:46)
[2019-04-09] MEDS: DOCUSATE SODIUM 100 MG CAPSULE. PO SCH ×2 (08:46→20:19)
[2019-04-09] MEDS: INSULIN LISPRO 300 UNITS/3 ML INSULN.PEN. SQ SCH ×3 (08:55→17:32)
[2019-04-09] MEDS ORDERED: POTASSIUM CHLORIDE 20 MEQ TABLET.ER. PO ONE (09:00)
--- NOTE | 2019-04-09 09:03 | PDOC ---
CIRILO MERCADO [employer] 04/09/19 0903: SURGICAL PROGRESS NOTE Subjective no pain no emesis no flatus Vital Signs Vital Signs Date Time Temp Pulse Resp B/P (MAP) Pulse Ox O2 Delivery O2 Flow Rate FiO2 04/09/19 07:00 100.2 105 16 134/63 (86) 93 Nasal Cannula 2.0 100.2 I&O Intake and Output 04/09/19 07:00 Intake Total 1800 ml Output Total 1175 ml Balance 625 ml Intake Oral 0 ml IV Total 1800 ml Output Urine Total 1150 ml Estimated Blood Loss 25 ml PATIENT HAS A ANGLIN: Yes (dc today) General: Alert, Oriented X3, Cooperative, No acute distress Abdomen: Soft, Other (ND, drain serosang, lap sites c/d/i, no erythema ) Labs Laboratory Tests Test 04/08/19 19:30 04/08/19 20:00 04/08/19 22:37 04/09/19 00:08 White Blood Count 18.2 x10^3/uL (4.0-11.0) Red Blood Count 5.02 x10^6/uL (3.50-5.40) Hemoglobin 14.4 g/dL (12.0-15.5) Hematocrit 43.6 % (36.0-47.0) Mean Corpuscular Volume 87 fL (79-100) Mean Corpuscular Hemoglobin 29 pg (25-35) Mean Corpuscular Hemoglobin Concent 33 g/dL (31-37) Red Cell Distribution Width 13.0 % (11.5-14.5) Platelet Count 296 x10^3/uL (140-400) Neutrophils (%) (Auto) 85 % (31-73) Lymphocytes (%) (Auto) 8 % (24-48) Monocytes (%) (Auto) 5 % (0-9) Eosinophils (%) (Auto) 1 % (0-3) Basophils (%) (Auto) 0 % (0-3) Neutrophils # (Auto) 15.5 x10^3uL (1.8-7.7) Lymphocytes # (Auto) 1.5 x10^3/uL (1.0-4.8) Monocytes # (Auto) 1.0 x10^3/uL (0.0-1.1) Eosinophils # (Auto) 0.2 x10^3/uL (0.0-0.7) Basophils # (Auto) 0.0 x10^3/uL (0.0-0.2) Segmented Neutrophils % 82 % (35-66) Lymphocytes % 12 % (24-48) Monocytes % 4 % (0-10) Eosinophils % 2 % (0-5) Platelet Estimate Adequate (ADEQUATE) Prothrombin Time 12.8 SEC (11.7-14.0) Prothromb Time International Ratio 1.0 (0.8-1.1) Sodium Level 138 mmol/L (136-145) Potassium Level 3.3 mmol/L (3.5-5.1) Chloride Level 96 mmol/L (98-107) Carbon Dioxide Level 28 mmol/L (21-32) Anion Gap 14 (6-14) Blood Urea Nitrogen 16 mg/dL (7-20) Creatinine 1.1 mg/dL (0.6-1.0) Estimated GFR (Cockcroft-Gault) 48.4 BUN/Creatinine Ratio 15 (6-20) Glucose Level 301 mg/dL (70-99) Lactic Acid Level 3.4 mmol/L (0.4-2.0) Calcium Level 8.5 mg/dL (8.5-10.1) Total Bilirubin 0.4 mg/dL (0.2-1.0) Aspartate Amino Transf (AST/SGOT) 19 U/L (15-37) Alanine Aminotransferase (ALT/SGPT) 47 U/L (14-59) Alkaline Phosphatase 75 U/L (46-116) Creatine Kinase 106 U/L (26-192) Total Protein 7.8 g/dL (6.4-8.2) Albumin 3.9 g/dL (3.4-5.0) Albumin/Globulin Ratio 1.0 (1.0-1.7) Lipase 284 U/L (73-393) Urine Collection Type Unknown Urine Color Yellow Urine Clarity Clear Urine pH 5.0 Urine Specific [place] 1.025 Urine Protein 100 mg/dL (NEG-TRACE) Urine Glucose (UA) >=1000 mg/dL (NEG) Urine Ketones (Stick) Negative mg/dL (NEG) Urine Blood Negative (NEG) Urine Nitrite Negative (NEG) Urine Bilirubin Negative (NEG) Urine Urobilinogen Dipstick 0.2 mg/dL (0.2 mg/dL) Urine Leukocyte Esterase Negative (NEG) Urine RBC 1-2 /HPF (0-2) Urine WBC 5-10 /HPF (0-4) Urine Squamous Epithelial Cells Few /LPF Urine Amorphous Sediment Present /HPF Urine Bacteria 0 /HPF (0-FEW) Urine Mucus Slight /LPF Glucose (Fingerstick) 199 mg/dL (70-99) 191 mg/dL (70-99) Test 04/09/19 01:55 04/09/19 02:23 04/09/19 07:56 White Blood Count 17.6 x10^3/uL (4.0-11.0) Red Blood Count 4.58 x10^6/uL (3.50-5.40) Hemoglobin 13.1 g/dL (12.0-15.5) Hematocrit 39.5 % (36.0-47.0) Mean Corpuscular Volume 86 fL (79-100) Mean Corpuscular Hemoglobin 29 pg (25-35) Mean Corpuscular Hemoglobin Concent 33 g/dL (31-37) Red Cell Distribution Width 13.2 % (11.5-14.5) Platelet Count 278 x10^3/uL (140-400) Neutrophils (%) (Auto) 94 % (31-73) Lymphocytes (%) (Auto) 4 % (24-48) Monocytes (%) (Auto) 2 % (0-9) Eosinophils (%) (Auto) 0 % (0-3) Basophils (%) (Auto) 0 % (0-3) Neutrophils # (Auto) 16.6 x10^3uL (1.8-7.7) Lymphocytes # (Auto) 0.6 x10^3/uL (1.0-4.8) Monocytes # (Auto) 0.3 x10^3/uL (0.0-1.1) Eosinophils # (Auto) 0.0 x10^3/uL (0.0-0.7) Basophils # (Auto) 0.0 x10^3/uL (0.0-0.2) Sodium Level 138 mmol/L (136-145) Potassium Level 3.4 mmol/L (3.5-5.1) Chloride Level 100 mmol/L (98-107) Carbon Dioxide Level 26 mmol/L (21-32) Anion Gap 12 (6-14) Blood Urea Nitrogen 13 mg/dL (7-20) Creatinine 1.0 mg/dL (0.6-1.0) Estimated GFR (Cockcroft-Gault) 54.1 Glucose Level 207 mg/dL (70-99) Lactic Acid Level 3.1 mmol/L (0.4-2.0) Calcium Level 7.7 mg/dL (8.5-10.1) Glucose (Fingerstick) 192 mg/dL (70-99) 287 mg/dL (70-99) Laboratory Tests Test 04/08/19 19:30 04/08/19 20:00 04/08/19 22:37 04/09/19 00:08 White Blood Count 18.2 x10^3/uL (4.0-11.0) Red Blood Count 5.02 x10^6/uL (3.50-5.40) Hemoglobin 14.4 g/dL (12.0-15.5) Hematocrit 43.6 % (36.0-47.0) Mean Corpuscular Volume 87 fL (79-100) Mean Corpuscular Hemoglobin 29 pg (25-35) Mean Corpuscular Hemoglobin Concent 33 g/dL (31-37) Red Cell Distribution Width 13.0 % (11.5-14.5) Platelet Count 296 x10^3/uL (140-400) Neutrophils (%) (Auto) 85 % (31-73) Lymphocytes (%) (Auto) 8 % (24-48) Monocytes (%) (Auto) 5 % (0-9) Eosinophils (%) (Auto) 1 % (0-3) Basophils (%) (Auto) 0 % (0-3) Neutrophils # (Auto) 15.5 x10^3uL (1.8-7.7) Lymphocytes # (Auto) 1.5 x10^3/uL (1.0-4.8) Monocytes # (Auto) 1.0 x10^3/uL (0.0-1.1) Eosinophils # (Auto) 0.2 x10^3/uL (0.0-0.7) Basophils # (Auto) 0.0 x10^3/uL (0.0-0.2) Segmented Neutrophils % 82 % (35-66) Lymphocytes % 12 % (24-48) Monocytes % 4 % (0-10) Eosinophils % 2 % (0-5) Platelet Estimate Adequate (ADEQUATE) Prothrombin Time 12.8 SEC (11.7-14.0) Prothromb Time International Ratio 1.0 (0.8-1.1) Sodium Level 138 mmol/L (136-145) Potassium Level 3.3 mmol/L (3.5-5.1) Chloride Level 96 mmol/L (98-107) Carbon Dioxide Level 28 mmol/L (21-32) Anion Gap 14 (6-14) Blood Urea Nitrogen 16 mg/dL (7-20) Creatinine 1.1 mg/dL (0.6-1.0) Estimated GFR (Cockcroft-Gault) 48.4 BUN/Creatinine Ratio 15 (6-20) Glucose Level 301 mg/dL (70-99) Lactic Acid Level 3.4 mmol/L (0.4-2.0) Calcium Level 8.5 mg/dL (8.5-10.1) Total Bilirubin 0.4 mg/dL (0.2-1.0) Aspartate Amino Transf (AST/SGOT) 19 U/L (15-37) Alanine Aminotransferase (ALT/SGPT) 47 U/L (14-59) Alkaline Phosphatase 75 U/L (46-116) Creatine Kinase 106 U/L (26-192) Total Protein 7.8 g/dL (6.4-8.2) Albumin 3.9 g/dL (3.4-5.0) Albumin/Globulin Ratio 1.0 (1.0-1.7) Lipase 284 U/L (73-393) Urine Collection Type Unknown Urine Color Yellow Urine Clarity Clear Urine pH 5.0 Urine Specific [place] 1.025 Urine Protein 100 mg/dL (NEG-TRACE) Urine Glucose (UA) >=1000 mg/dL (NEG) Urine Ketones (Stick) Negative mg/dL (NEG) Urine Blood Negative (NEG) Urine Nitrite Negative (NEG) Urine Bilirubin Negative (NEG) Urine Urobilinogen Dipstick 0.2 mg/dL (0.2 mg/dL) Urine Leukocyte Esterase Negative (NEG) Urine RBC 1-2 /HPF (0-2) Urine WBC 5-10 /HPF (0-4) Urine Squamous Epithelial Cells Few /LPF Urine Amorphous Sediment Present /HPF Urine Bacteria 0 /HPF (0-FEW) Urine Mucus Slight /LPF Glucose (Fingerstick) 199 mg/dL (70-99) 191 mg/dL (70-99) Test 04/09/19 01:55 04/09/19 02:23 04/09/19 07:56 White Blood Count 17.6 x10^3/uL (4.0-11.0) Red Blood Count 4.58 x10^6/uL (3.50-5.40) Hemoglobin 13.1 g/dL (12.0-15.5) Hematocrit 39.5 % (36.0-47.0) Mean Corpuscular Volume 86 fL (79-100) Mean Corpuscular Hemoglobin 29 pg (25-35) Mean Corpuscular Hemoglobin Concent 33 g/dL (31-37) Red Cell Distribution Width 13.2 % (11.5-14.5) Platelet Count 278 x10^3/uL (140-400) Neutrophils (%) (Auto) 94 % (31-73) Lymphocytes (%) (Auto) 4 % (24-48) Monocytes (%) (Auto) 2 % (0-9) Eosinophils (%) (Auto) 0 % (0-3) Basophils (%) (Auto) 0 % (0-3) Neutrophils # (Auto) 16.6 x10^3uL (1.8-7.7) Lymphocytes # (Auto) 0.6 x10^3/uL (1.0-4.8) Monocytes # (Auto) 0.3 x10^3/uL (0.0-1.1) Eosinophils # (Auto) 0.0 x10^3/uL (0.0-0.7) Basophils # (Auto) 0.0 x10^3/uL (0.0-0.2) Sodium Level 138 mmol/L (136-145) Potassium Level 3.4 mmol/L (3.5-5.1) Chloride Level 100 mmol/L (98-107) Carbon Dioxide Level 26 mmol/L (21-32) Anion Gap 12 (6-14) Blood Urea Nitrogen 13 mg/dL (7-20) Creatinine 1.0 mg/dL (0.6-1.0) Estimated GFR (Cockcroft-Gault) 54.1 Glucose Level 207 mg/dL (70-99) Lactic Acid Level 3.1 mmol/L (0.4-2.0) Calcium Level 7.7 mg/dL (8.5-10.1) Glucose (Fingerstick) 192 mg/dL (70-99) 287 mg/dL (70-99) Problem List Problems Medical Problems: (1) Acute appendicitis Status: Acute (2) Hyperglycemia Status: Acute (3) Sepsis Status: Acute (4) Uncontrolled diabetes mellitus Status: Acute Assessment/Plan s/p appy continue abx clears, await bowel function increase activity FER ALMARAZ MD 04/09/19 0940: SURGICAL PROGRESS NOTE Assessment/Plan pt seen up walking the halls feels better will recheck labs from 0150 this AM d/c anglin contineu I&O d/w family CIRILO MERCADO APRN April 09, 2019 09:03 FER ALMARAZ MD April 09, 2019 09:40
--- NOTE | 2019-04-09 09:41 | OP ---
DATE OF SURGERY: 04/08/2019 PREOPERATIVE DIAGNOSIS: Acute appendicitis. POSTOPERATIVE DIAGNOSIS: Gangrenous appendicitis. PROCEDURE: Laparoscopic appendectomy. SURGEON: Forrest Almaraz MD ANESTHESIA: General endotracheal. ESTIMATED BLOOD LOSS: 25. INTRAVENOUS FLUID: 500. URINE OUTPUT: 100. INDICATIONS: The patient is a 74-year-old with right lower quadrant pain and a CT consistent with appendicitis. She is brought for appendectomy. OPERATIVE FINDINGS: She had an acute gangrenous appendix without other evidence of abnormality. DESCRIPTION OF PROCEDURE: The patient was brought to the operating suite, given a general endotracheal anesthetic. Olson catheter placed to dependent drainage and the abdomen was prepped and draped in the usual sterile fashion. A 0.5% Marcaine with epinephrine was infiltrated in the midline, epigastric incision made and a 5 mm Visiport used to safely gain access into the abdominal cavity, taking care to avoid injury to abdominal contents. Pneumoperitoneum established. Camera inserted. Inspection carried out with results as noted above. With the table rolled to the left, the suprapubic and left lower quadrant ports were placed under direct vision. The epigastric port converted to 12 mm for instrumentation. The gangrenous appendix was gently freed from surrounding structure with blunt dissection and was grasped through the suprapubic port. Ring created between the base of the appendix and the mesoappendix and this was amputated with a tissue load of the Endo-MAGALIE stapler. The mesoappendix controlled with clips and vascular loads from the Endo-MAGALIE. The appendix was placed in an EndoCatch bag. The staple line on the blood supply to the appendix was reinforced with medium large clips as needed. Intra-abdominal pressure decreased to 6 cm of water. No bleeding from the appendiceal stump or from the mesoappendix was seen. Table returned to level. A 19-[place] round Arvind drain was brought through a right-sided stab wound and left in paracolic gutter extending down into the pelvis. Secured with a silk stitch. We again checked for hemostasis. The appendix was delivered through the epigastric incision, which was then closed with 0 Vicryl suture. Again, at 6 cm of water pressure intra-abdominally, no bleeding from the closure of the epigastric port site or from the lateral left lower quadrant port site after its removal. Abdomen decompressed, camera slowly removed, no bleeding seen. Skin incisions closed with subcuticular 4-0 Monocryl. Steri-Strips and sterile dressings applied. The patient awakened from her anesthetic and taken to the recovery room in satisfactory condition. FORREST ALMARAZ MD DR: ROBERT/ekta JOB#: [id number] / [id number]
[2019-04-09 10:25] LABS: BASO # 0.1 x10^3/uL (0.0-0.2); BASO % 1 % (0-3); EOS % 0 % (0-3); HEMATOCRIT 39.6 % (36.0-47.0); HEMOGLOBIN 13.4 g/dL (12.0-15.5); LYMPH # 1.5 x10^3/uL (1.0-4.8); LYMPH % 7 % (24-48); MEAN CORPUSCULAR HEMOGLOBIN 29 pg (25-35); MEAN CORPUSCULAR HGB CONC 34 g/dL (31-37); MEAN CORPUSCULAR VOLUME 86 fL (79-100); MONO # 0.9 x10^3/uL (0.0-1.1); MONO % 4 % (0-9); NEUT # 18.7 x10^3uL (1.8-7.7); NEUT % 88 % (31-73); PLATELET COUNT 302 x10^3/uL (140-400); RED CELL DISTRIBUTION WIDTH 13.2 % (11.5-14.5); WHITE BLOOD COUNT 21.2 x10^3/uL (4.0-11.0)
--- NOTE | 2019-04-09 10:28 | PDOC ---
Infectious Disease Note Vital Signs: Vital Signs Vital Signs Date Time Temp Pulse Resp B/P (MAP) Pulse Ox O2 Delivery O2 Flow Rate FiO2 04/09/19 07:00 100.2 105 16 134/63 (86) 93 Nasal Cannula 2.0 100.2 Medications: Inpatient Meds: Current Medications Medications (Trade) Dose Ordered Sig/Brenda Start Time Stop Time Status Last Admin Dose Admin Acetaminophen (Tylenol) 500 mg PRN Q6HRS PRN 04/08/19 21:15 Acetaminophen/ Hydrocodone Bitart (Lortab 5/325) 2 tab PRN Q4HRS PRN 04/09/19 00:15 Bupivacaine HCl/ Epinephrine Bitart (Sensorcain-Mpf Epi 0.5%-1:[id number]) 30 ml STK-MED ONCE 04/08/19 21:12 04/08/19 22:13 DC 04/08/19 23:09 30 ML Ceftriaxone Sodium (Rocephin) 1 gm 1X ONCE 04/08/19 21:00 04/08/19 21:05 DC 04/08/19 21:38 1 GM Dexamethasone Sodium Phosphate (Decadron) 4 mg STK-MED ONCE 04/08/19 22:11 04/08/19 22:12 DC Dextrose (Dextrose 50%-Water Syringe) 12.5 gm PRN Q15MIN PRN 04/09/19 03:00 Diphenhydramine HCl (Benadryl) 25 mg PRN Q6HRS PRN 04/09/19 00:15 Docusate Sodium (Colace) 100 mg BID 04/09/19 09:00 04/09/19 08:46 100 MG Enoxaparin Sodium (Lovenox 40mg Syringe) 40 mg Q24H 04/09/19 09:00 04/09/19 08:46 40 MG Ephedrine Sulfate (ePHEDrine PF IN SALINE SYRINGE) 50 mg STK-MED ONCE 04/08/19 22:11 04/08/19 22:12 DC Esmolol HCl (Brevibloc) 100 mg STK-MED ONCE 04/08/19 23:29 04/08/19 23:30 DC Fentanyl Citrate (Fentanyl 2ml Vial) 50 mcg PRN Q5MIN PRN 04/08/19 22:15 04/09/19 22:14 Glycopyrrolate (Robinul) 1 mg STK-MED ONCE 04/08/19 23:17 04/08/19 23:18 DC Hydromorphone HCl (Dilaudid) 1 mg PRN Q4HRS PRN 04/09/19 00:15 Insulin Human Lispro (HumaLOG VIAL) 0-10 units SSI PRN 04/08/19 22:15 04/09/19 02:57 DC 04/09/19 00:13 4 UNIT Insulin Human Lispro (HumaLOG) 0-5 UNITS TIDWMEALS 04/09/19 08:00 04/09/19 08:55 4 UNITS Levofloxacin/ Dextrose 100 ml @ 100 mls/hr Q24H 04/08/19 21:30 04/08/19 21:58 DC Levofloxacin/ Dextrose (Levaquin Per Pharmacy) 1 each PRN DAILY PRN 04/08/19 21:15 04/08/19 21:58 DC Lidocaine HCl (Lidocaine Pf 2% Vial) 5 ml STK-MED ONCE 04/08/19 22:10 04/08/19 22:11 DC Metronidazole 100 ml @ 100 mls/hr Q12HR 04/09/19 09:00 04/09/19 08:45 100 MLS/HR Morphine Sulfate (Morphine Sulfate) 1 mg PRN Q10MIN PRN 04/08/19 22:15 04/09/19 22:14 Neostigmine Methylsulfate (Neostigmine Methylsulfate) 5 mg STK-MED ONCE 04/08/19 23:17 04/08/19 23:18 DC Ondansetron HCl (Zofran) 4 mg PRN Q6HRS PRN 04/09/19 00:30 Piperacillin Sod/ Tazobactam Sod 3.375 gm/Sodium Chloride 50 ml @ 100 mls/hr 1X ONCE 04/08/19 20:30 04/08/19 21:58 DC Potassium Chloride/Dextrose/ Sod Cl 1,000 ml @ 75 mls/hr [id number] 04/08/19 21:15 04/08/19 21:58 DC Potassium Chloride/Sodium Chloride 1,000 ml @ 100 mls/hr Q10H 04/09/19 00:30 04/09/19 08:46 100 MLS/HR Potassium Chloride (Klor-Con) 40 meq 1X ONCE 04/09/19 09:00 04/09/19 09:01 DC Prochlorperazine Edisylate (Compazine) 5 mg PACU PRN PRN 04/08/19 22:15 04/09/19 22:14 Propofol 20 ml @ As Directed STK-MED ONCE 04/08/19 22:10 04/08/19 22:11 DC Ringer's Solution 1,000 ml @ 30 mls/hr Q24H 04/08/19 22:15 04/09/19 10:14 DC 04/08/19 22:49 30 MLS/HR Rocuronium [place] (Zemuron) 50 mg STK-MED ONCE 04/08/19 22:11 04/08/19 22:12 DC Sodium Chloride (Normal Saline Flush) 3 ml QSHIFT PRN 04/09/19 00:15 Succinylcholine Chloride (Anectine) 200 mg STK-MED ONCE 04/08/19 22:12 04/08/19 22:13 DC Labs: Lab Laboratory Tests Test 04/08/19 19:30 04/08/19 20:00 04/08/19 22:37 04/09/19 00:08 White Blood Count 18.2 x10^3/uL (4.0-11.0) Red Blood Count 5.02 x10^6/uL (3.50-5.40) Hemoglobin 14.4 g/dL (12.0-15.5) Hematocrit 43.6 % (36.0-47.0) Mean Corpuscular Volume 87 fL (79-100) Mean Corpuscular Hemoglobin 29 pg (25-35) Mean Corpuscular Hemoglobin Concent 33 g/dL (31-37) Red Cell Distribution Width 13.0 % (11.5-14.5) Platelet Count 296 x10^3/uL (140-400) Neutrophils (%) (Auto) 85 % (31-73) Lymphocytes (%) (Auto) 8 % (24-48) Monocytes (%) (Auto) 5 % (0-9) Eosinophils (%) (Auto) 1 % (0-3) Basophils (%) (Auto) 0 % (0-3) Neutrophils # (Auto) 15.5 x10^3uL (1.8-7.7) Lymphocytes # (Auto) 1.5 x10^3/uL (1.0-4.8) Monocytes # (Auto) 1.0 x10^3/uL (0.0-1.1) Eosinophils # (Auto) 0.2 x10^3/uL (0.0-0.7) Basophils # (Auto) 0.0 x10^3/uL (0.0-0.2) Segmented Neutrophils % 82 % (35-66) Lymphocytes % 12 % (24-48) Monocytes % 4 % (0-10) Eosinophils % 2 % (0-5) Platelet Estimate Adequate (ADEQUATE) Prothrombin Time 12.8 SEC (11.7-14.0) Prothromb Time International Ratio 1.0 (0.8-1.1) Sodium Level 138 mmol/L (136-145) Potassium Level 3.3 mmol/L (3.5-5.1) Chloride Level 96 mmol/L (98-107) Carbon Dioxide Level 28 mmol/L (21-32) Anion Gap 14 (6-14) Blood Urea Nitrogen 16 mg/dL (7-20) Creatinine 1.1 mg/dL (0.6-1.0) Estimated GFR (Cockcroft-Gault) 48.4 BUN/Creatinine Ratio 15 (6-20) Glucose Level 301 mg/dL (70-99) Lactic Acid Level 3.4 mmol/L (0.4-2.0) Calcium Level 8.5 mg/dL (8.5-10.1) Total Bilirubin 0.4 mg/dL (0.2-1.0) Aspartate Amino Transf (AST/SGOT) 19 U/L (15-37) Alanine Aminotransferase (ALT/SGPT) 47 U/L (14-59) Alkaline Phosphatase 75 U/L (46-116) Creatine Kinase 106 U/L (26-192) Total Protein 7.8 g/dL (6.4-8.2) Albumin 3.9 g/dL (3.4-5.0) Albumin/Globulin Ratio 1.0 (1.0-1.7) Lipase 284 U/L (73-393) Urine Collection Type Unknown Urine Color Yellow Urine Clarity Clear Urine pH 5.0 Urine Specific [place] 1.025 Urine Protein 100 mg/dL (NEG-TRACE) Urine Glucose (UA) >=1000 mg/dL (NEG) Urine Ketones (Stick) Negative mg/dL (NEG) Urine Blood Negative (NEG) Urine Nitrite Negative (NEG) Urine Bilirubin Negative (NEG) Urine Urobilinogen Dipstick 0.2 mg/dL (0.2 mg/dL) Urine Leukocyte Esterase Negative (NEG) Urine RBC 1-2 /HPF (0-2) Urine WBC 5-10 /HPF (0-4) Urine Squamous Epithelial Cells Few /LPF Urine Amorphous Sediment Present /HPF Urine Bacteria 0 /HPF (0-FEW) Urine Mucus Slight /LPF Glucose (Fingerstick) 199 mg/dL (70-99) 191 mg/dL (70-99) Test 04/09/19 01:55 04/09/19 02:23 04/09/19 07:56 White Blood Count 17.6 x10^3/uL (4.0-11.0) Red Blood Count 4.58 x10^6/uL (3.50-5.40) Hemoglobin 13.1 g/dL (12.0-15.5) Hematocrit 39.5 % (36.0-47.0) Mean Corpuscular Volume 86 fL (79-100) Mean Corpuscular Hemoglobin 29 pg (25-35) Mean Corpuscular Hemoglobin Concent 33 g/dL (31-37) Red Cell Distribution Width 13.2 % (11.5-14.5) Platelet Count 278 x10^3/uL (140-400) Neutrophils (%) (Auto) 94 % (31-73) Lymphocytes (%) (Auto) 4 % (24-48) Monocytes (%) (Auto) 2 % (0-9) Eosinophils (%) (Auto) 0 % (0-3) Basophils (%) (Auto) 0 % (0-3) Neutrophils # (Auto) 16.6 x10^3uL (1.8-7.7) Lymphocytes # (Auto) 0.6 x10^3/uL (1.0-4.8) Monocytes # (Auto) 0.3 x10^3/uL (0.0-1.1) Eosinophils # (Auto) 0.0 x10^3/uL (0.0-0.7) Basophils # (Auto) 0.0 x10^3/uL (0.0-0.2) Sodium Level 138 mmol/L (136-145) Potassium Level 3.4 mmol/L (3.5-5.1) Chloride Level 100 mmol/L (98-107) Carbon Dioxide Level 26 mmol/L (21-32) Anion Gap 12 (6-14) Blood Urea Nitrogen 13 mg/dL (7-20) Creatinine 1.0 mg/dL (0.6-1.0) Estimated GFR (Cockcroft-Gault) 54.1 Glucose Level 207 mg/dL (70-99) Lactic Acid Level 3.1 mmol/L (0.4-2.0) Calcium Level 7.7 mg/dL (8.5-10.1) Glucose (Fingerstick) 192 mg/dL (70-99) 287 mg/dL (70-99) Objective: Assessment: Pt seen and examined IMP: gangrenous appendicitis s/p Lap appendectomy Leucocytosis and lactic acidosis PCN allergy hives Plan: Plan of Care Zosyn cont local care cont supportive care Thank you [phone] ELOISA PENNINGTON MD April 09, 2019 10:28
[2019-04-09] MEDS: HYDROcodone/APAP 5/325MG 1 TAB TABLET PO PRN ×3 (11:34→20:22)
[2019-04-09] MEDS: PIPERACILLIN/TAZOBACTAM 3.375 GM in IV NORMAL SALINE 50ML 50 ML IV SCH ×3 (12:35→23:30)
--- NOTE | 2019-04-09 13:35 | NUR ---
SW following for discharge planning. Discussed with RN, pt is from home, family involved. PT/OT recommending SNU. SW will continue to follow for discharge planning.
--- NOTE | 2019-04-09 14:33 | PDOC1 ---
History and Physical Date of Admission Date of Admission 04/09/2019 Identification/Chief Complaint Chief Complaint shanda russell Source Source: Chart review, Patient History of Present Illness History of Present Illness Patient is a 74 year old female whto was in her usual state of health until the night of her admission when she presented acute onset of abdominal pain that started over the right lkower quadrant sudden onset, associated with nausea, no fever or chills reported. She does rpeort feeling clammy with the painful episode, no dietary transgression has been reported, she denies vomiting, no diarrhea. No blod in the stools no urinary symtpoms reported, no chest pain palpitation or shortness of breath reported. Patient was admitted and taken to the OR where she underwent and laparsocopic appendectomy She is in no apparent distress during my visit. no concerns were voiced by the patient nor the famikly .Patient does have a slight facial droop as a consequence of a stroke years ago.l Plan of care discussed in detail. all concerns addressed to the best of my abilities. Past Medical History Cardiovascular: No pertinent hx, HTN Pulmonary: No pertinent hx CENTRAL NERVOUS SYSTEM: CVA GI: Other (C diff colitis) Infectious disease: Other Endocrine: Diabetes, Hypothyroidism Past Surgical History Past Surgical History: Appendectomy, Hysterectomy, Other (thyroidectomy) Family History Family History: No Significant, Other Social History Smoke: No Current Problem List Problem List Problems Medical Problems: (1) Acute appendicitis Status: Acute (2) Hyperglycemia Status: Acute (3) Sepsis Status: Acute (4) Uncontrolled diabetes mellitus Status: Acute Current Medications Current Medications Current Medications Medications (Trade) Dose Ordered Sig/Brenda Start Time Stop Time Status Last Admin Dose Admin Acetaminophen (Tylenol) 500 mg PRN Q6HRS PRN 04/08/19 21:15 Acetaminophen/ Hydrocodone Bitart (Lortab 5/325) 2 tab PRN Q4HRS PRN 04/09/19 00:15 Bupivacaine HCl/ Epinephrine Bitart (Sensorcain-Mpf Epi 0.5%-[id number]) 30 ml STK-MED ONCE 04/08/19 21:12 04/08/19 22:13 DC 04/08/19 23:09 30 ML Ceftriaxone Sodium (Rocephin) 1 gm 1X ONCE 04/08/19 21:00 04/08/19 21:05 DC 04/08/19 21:38 1 GM Dexamethasone Sodium Phosphate (Decadron) 4 mg STK-MED ONCE 04/08/19 22:11 04/08/19 22:12 DC Dextrose (Dextrose 50%-Water Syringe) 12.5 gm PRN Q15MIN PRN 04/09/19 03:00 Diphenhydramine HCl (Benadryl) 25 mg PRN Q6HRS PRN 04/09/19 00:15 Docusate Sodium (Colace) 100 mg BID 04/09/19 09:00 04/09/19 08:46 100 MG Enoxaparin Sodium (Lovenox 40mg Syringe) 40 mg Q24H 04/09/19 09:00 04/09/19 08:46 40 MG Ephedrine Sulfate (ePHEDrine PF IN SALINE SYRINGE) 50 mg STK-MED ONCE 04/08/19 22:11 04/08/19 22:12 DC Esmolol HCl (Brevibloc) 100 mg STK-MED ONCE 04/08/19 23:29 04/08/19 23:30 DC Fentanyl Citrate (Fentanyl 2ml Vial) 50 mcg PRN Q5MIN PRN 04/08/19 22:15 04/09/19 22:14 Glycopyrrolate (Robinul) 1 mg STK-MED ONCE 04/08/19 23:17 04/08/19 23:18 DC Hydromorphone HCl (Dilaudid) 1 mg PRN Q4HRS PRN 04/09/19 00:15 Insulin Human Lispro (HumaLOG VIAL) 0-10 units SSI PRN 04/08/19 22:15 04/09/19 02:57 DC 04/09/19 00:13 4 UNIT Insulin Human Lispro (HumaLOG) 0-5 UNITS TIDWMEALS 04/09/19 08:00 04/09/19 12:42 3 UNITS Lactobacillus Rhamnosus (Culturelle) 1 cap BID 04/09/19 21:00 Levofloxacin/ Dextrose 100 ml @ 100 mls/hr Q24H 04/08/19 21:30 04/08/19 21:58 DC Levofloxacin/ Dextrose (Levaquin Per Pharmacy) 1 each PRN DAILY PRN 04/08/19 21:15 04/08/19 21:58 DC Lidocaine HCl (Lidocaine Pf 2% Vial) 5 ml STK-MED ONCE 5/29/19 22:10 04/08/19 22:11 DC Metronidazole 100 ml @ 100 mls/hr Q12HR 04/09/19 09:00 04/09/19 10:30 DC 04/09/19 08:45 100 MLS/HR Morphine Sulfate (Morphine Sulfate) 1 mg PRN Q10MIN PRN 04/08/19 22:15 04/09/19 22:14 Neostigmine Methylsulfate (Neostigmine Methylsulfate) 5 mg STK-MED ONCE 04/08/19 23:17 04/08/19 23:18 DC Ondansetron HCl (Zofran) 4 mg PRN Q6HRS PRN 04/09/19 00:30 Piperacillin Sod/ Tazobactam Sod 3.375 gm/Sodium Chloride 50 ml @ 100 mls/hr Q6HRS 04/09/19 12:00 04/09/19 12:35 100 MLS/HR Potassium Chloride/Dextrose/ Sod Cl 1,000 ml @ 75 mls/hr [id number] 04/08/19 21:15 04/08/19 21:58 DC Potassium Chloride/Sodium Chloride 1,000 ml @ 100 mls/hr Q10H 04/09/19 00:30 04/09/19 08:46 100 MLS/HR Potassium Chloride (Klor-Con) 40 meq 1X ONCE 04/09/19 09:00 04/09/19 09:01 DC 04/09/19 11:34 40 MEQ Prochlorperazine Edisylate (Compazine) 5 mg PACU PRN PRN 04/08/19 22:15 04/09/19 22:14 Propofol 20 ml @ As Directed STK-MED ONCE 04/08/19 22:10 04/08/19 22:11 DC Ringer's Solution 1,000 ml @ 30 mls/hr Q24H 04/08/19 22:15 04/09/19 10:14 DC 04/08/19 22:49 30 MLS/HR Rocuronium [place] (Zemuron) 50 mg STK-MED ONCE 04/08/19 22:11 04/08/19 22:12 DC Sodium Chloride (Normal Saline Flush) 3 ml QSHIFT PRN 04/09/19 00:15 Succinylcholine Chloride (Anectine) 200 mg STK-MED ONCE 04/08/19 22:12 04/08/19 22:13 DC Allergies Allergies Allergies Coded Allergies Type Severity Reaction Last Updated Verified levofloxacin Allergy Severe severe diarrhea 04/09/19 Yes Penicillins Adverse Reaction Intermediate itching 04/08/19 Yes ROS Review of System CONSTITUTIONAL: No fever or chills EYES: No recent changes SKIN: No rash or itching CARDIOVASCULAR: No chest pain, syncope, palpitations, or edema RESPIRATORY: No SOB or cough GASTROINTESTINAL: as per hpi NEUROLOGICAL: No headaches or weakness ENDOCRINE: No cold or heat intolerance GENITOURINARY: No urgency or frequency of urination MUSCULOSKELETAL: No back pain or joint pain LYMPHATICS: No enlarged lymph nodes PSYCHIATRIC: No anxiety or depression Physical Exam Physical Exam GEN.: No apparent distress. Alert and oriented. HEENT: Head is normocephalic, atraumatic NECK: Supple. LUNGS: Clear to auscultation. HEART: RRR, S1, S2 present. Peripheral pulses intact ABDOMEN: Soft, nontender. Positive bowel sounds. EXTREMITIES: Without any cyanosis. NEUROLOGIC: Normal speech, normal tone PSYCHIATRIC: Normal affect, normal mood. SKIN: No ulcerations Vitals Vitals Vital Signs Date Time Temp Pulse Resp B/P (MAP) Pulse Ox O2 Delivery O2 Flow Rate FiO2 04/09/19 12:43 Room Air 04/09/19 11:30 99.2 94 14 112/54 (73) 96 99.2 04/09/19 08:00 2.0 Labs Labs Laboratory Tests Test 04/08/19 19:30 04/08/19 20:00 04/08/19 22:37 04/09/19 00:08 White Blood Count 18.2 x10^3/uL (4.0-11.0) Red Blood Count 5.02 x10^6/uL (3.50-5.40) Hemoglobin 14.4 g/dL (12.0-15.5) Hematocrit 43.6 % (36.0-47.0) Mean Corpuscular Volume 87 fL (79-100) Mean Corpuscular Hemoglobin 29 pg (25-35) Mean Corpuscular Hemoglobin Concent 33 g/dL (31-37) Red Cell Distribution Width 13.0 % (11.5-14.5) Platelet Count 296 x10^3/uL (140-400) Neutrophils (%) (Auto) 85 % (31-73) Lymphocytes (%) (Auto) 8 % (24-48) Monocytes (%) (Auto) 5 % (0-9) Eosinophils (%) (Auto) 1 % (0-3) Basophils (%) (Auto) 0 % (0-3) Neutrophils # (Auto) 15.5 x10^3uL (1.8-7.7) Lymphocytes # (Auto) 1.5 x10^3/uL (1.0-4.8) Monocytes # (Auto) 1.0 x10^3/uL (0.0-1.1) Eosinophils # (Auto) 0.2 x10^3/uL (0.0-0.7) Basophils # (Auto) 0.0 x10^3/uL (0.0-0.2) Segmented Neutrophils % 82 % (35-66) Lymphocytes % 12 % (24-48) Monocytes % 4 % (0-10) Eosinophils % 2 % (0-5) Platelet Estimate Adequate (ADEQUATE) Prothrombin Time 12.8 SEC (11.7-14.0) Prothromb Time International Ratio 1.0 (0.8-1.1) Sodium Level 138 mmol/L (136-145) Potassium Level 3.3 mmol/L (3.5-5.1) Chloride Level 96 mmol/L (98-107) Carbon Dioxide Level 28 mmol/L (21-32) Anion Gap 14 (6-14) Blood Urea Nitrogen 16 mg/dL (7-20) Creatinine 1.1 mg/dL (0.6-1.0) Estimated GFR (Cockcroft-Gault) 48.4 BUN/Creatinine Ratio 15 (6-20) Glucose Level 301 mg/dL (70-99) Lactic Acid Level 3.4 mmol/L (0.4-2.0) Calcium Level 8.5 mg/dL (8.5-10.1) Total Bilirubin 0.4 mg/dL (0.2-1.0) Aspartate Amino Transf (AST/SGOT) 19 U/L (15-37) Alanine Aminotransferase (ALT/SGPT) 47 U/L (14-59) Alkaline Phosphatase 75 U/L (46-116) Creatine Kinase 106 U/L (26-192) Total Protein 7.8 g/dL (6.4-8.2) Albumin 3.9 g/dL (3.4-5.0) Albumin/Globulin Ratio 1.0 (1.0-1.7) Lipase 284 U/L (73-393) Urine Collection Type Unknown Urine Color Yellow Urine Clarity Clear Urine pH 5.0 Urine Specific [place] 1.025 Urine Protein 100 mg/dL (NEG-TRACE) Urine Glucose (UA) >=1000 mg/dL (NEG) Urine Ketones (Stick) Negative mg/dL (NEG) Urine Blood Negative (NEG) Urine Nitrite Negative (NEG) Urine Bilirubin Negative (NEG) Urine Urobilinogen Dipstick 0.2 mg/dL (0.2 mg/dL) Urine Leukocyte Esterase Negative (NEG) Urine RBC 1-2 /HPF (0-2) Urine WBC 5-10 /HPF (0-4) Urine Squamous Epithelial Cells Few /LPF Urine Amorphous Sediment Present /HPF Urine Bacteria 0 /HPF (0-FEW) Urine Mucus Slight /LPF Glucose (Fingerstick) 199 mg/dL (70-99) 191 mg/dL (70-99) Test 04/09/19 01:55 04/09/19 02:23 04/09/19 07:56 04/09/19 10:00 White Blood Count 17.6 x10^3/uL (4.0-11.0) 21.2 x10^3/uL (4.0-11.0) Red Blood Count 4.58 x10^6/uL (3.50-5.40) 4.60 x10^6/uL (3.50-5.40) Hemoglobin 13.1 g/dL (12.0-15.5) 13.4 g/dL (12.0-15.5) Hematocrit 39.5 % (36.0-47.0) 39.6 % (36.0-47.0) Mean Corpuscular Volume 86 fL (79-100) 86 fL (79-100) Mean Corpuscular Hemoglobin 29 pg (25-35) 29 pg (25-35) Mean Corpuscular Hemoglobin Concent 33 g/dL (31-37) 34 g/dL (31-37) Red Cell Distribution Width 13.2 % (11.5-14.5) 13.2 % (11.5-14.5) Platelet Count 278 x10^3/uL (140-400) 302 x10^3/uL (140-400) Neutrophils (%) (Auto) 94 % (31-73) 88 % (31-73) Lymphocytes (%) (Auto) 4 % (24-48) 7 % (24-48) Monocytes (%) (Auto) 2 % (0-9) 4 % (0-9) Eosinophils (%) (Auto) 0 % (0-3) 0 % (0-3) Basophils (%) (Auto) 0 % (0-3) 1 % (0-3) Neutrophils # (Auto) 16.6 x10^3uL (1.8-7.7) 18.7 x10^3uL (1.8-7.7) Lymphocytes # (Auto) 0.6 x10^3/uL (1.0-4.8) 1.5 x10^3/uL (1.0-4.8) Monocytes # (Auto) 0.3 x10^3/uL (0.0-1.1) 0.9 x10^3/uL (0.0-1.1) Eosinophils # (Auto) 0.0 x10^3/uL (0.0-0.7) 0.0 x10^3/uL (0.0-0.7) Basophils # (Auto) 0.0 x10^3/uL (0.0-0.2) 0.1 x10^3/uL (0.0-0.2) Sodium Level 138 mmol/L (136-145) Potassium Level 3.4 mmol/L (3.5-5.1) Chloride Level 100 mmol/L (98-107) Carbon Dioxide Level 26 mmol/L (21-32) Anion Gap 12 (6-14) Blood Urea Nitrogen 13 mg/dL (7-20) Creatinine 1.0 mg/dL (0.6-1.0) Estimated GFR (Cockcroft-Gault) 54.1 Glucose Level 207 mg/dL (70-99) Lactic Acid Level 3.1 mmol/L (0.4-2.0) 2.9 mmol/L (0.4-2.0) Calcium Level 7.7 mg/dL (8.5-10.1) Glucose (Fingerstick) 192 mg/dL (70-99) 287 mg/dL (70-99) Test 04/09/19 11:12 Glucose (Fingerstick) 222 mg/dL (70-99) Laboratory Tests Test 04/08/19 19:30 04/08/19 20:00 04/08/19 22:37 04/09/19 00:08 White Blood Count 18.2 x10^3/uL (4.0-11.0) Red Blood Count 5.02 x10^6/uL (3.50-5.40) Hemoglobin 14.4 g/dL (12.0-15.5) Hematocrit 43.6 % (36.0-47.0) Mean Corpuscular Volume 87 fL (79-100) Mean Corpuscular Hemoglobin 29 pg (25-35) Mean Corpuscular Hemoglobin Concent 33 g/dL (31-37) Red Cell Distribution Width 13.0 % (11.5-14.5) Platelet Count 296 x10^3/uL (140-400) Neutrophils (%) (Auto) 85 % (31-73) Lymphocytes (%) (Auto) 8 % (24-48) Monocytes (%) (Auto) 5 % (0-9) Eosinophils (%) (Auto) 1 % (0-3) Basophils (%) (Auto) 0 % (0-3) Neutrophils # (Auto) 15.5 x10^3uL (1.8-7.7) Lymphocytes # (Auto) 1.5 x10^3/uL (1.0-4.8) Monocytes # (Auto) 1.0 x10^3/uL (0.0-1.1) Eosinophils # (Auto) 0.2 x10^3/uL (0.0-0.7) Basophils # (Auto) 0.0 x10^3/uL (0.0-0.2) Segmented Neutrophils % 82 % (35-66) Lymphocytes % 12 % (24-48) Monocytes % 4 % (0-10) Eosinophils % 2 % (0-5) Platelet Estimate Adequate (ADEQUATE) Prothrombin Time 12.8 SEC (11.7-14.0) Prothromb Time International Ratio 1.0 (0.8-1.1) Sodium Level 138 mmol/L (136-145) Potassium Level 3.3 mmol/L (3.5-5.1) Chloride Level 96 mmol/L (98-107) Carbon Dioxide Level 28 mmol/L (21-32) Anion Gap 14 (6-14) Blood Urea Nitrogen 16 mg/dL (7-20) Creatinine 1.1 mg/dL (0.6-1.0) Estimated GFR (Cockcroft-Gault) 48.4 BUN/Creatinine Ratio 15 (6-20) Glucose Level 301 mg/dL (70-99) Lactic Acid Level 3.4 mmol/L (0.4-2.0) Calcium Level 8.5 mg/dL (8.5-10.1) Total Bilirubin 0.4 mg/dL (0.2-1.0) Aspartate Amino Transf (AST/SGOT) 19 U/L (15-37) Alanine Aminotransferase (ALT/SGPT) 47 U/L (14-59) Alkaline Phosphatase 75 U/L (46-116) Creatine Kinase 106 U/L (26-192) Total Protein 7.8 g/dL (6.4-8.2) Albumin 3.9 g/dL (3.4-5.0) Albumin/Globulin Ratio 1.0 (1.0-1.7) Lipase 284 U/L (73-393) Urine Collection Type Unknown Urine Color Yellow Urine Clarity Clear Urine pH 5.0 Urine Specific [place] 1.025 Urine Protein 100 mg/dL (NEG-TRACE) Urine Glucose (UA) >=1000 mg/dL (NEG) Urine Ketones (Stick) Negative mg/dL (NEG) Urine Blood Negative (NEG) Urine Nitrite Negative (NEG) Urine Bilirubin Negative (NEG) Urine Urobilinogen Dipstick 0.2 mg/dL (0.2 mg/dL) Urine Leukocyte Esterase Negative (NEG) Urine RBC 1-2 /HPF (0-2) Urine WBC 5-10 /HPF (0-4) Urine Squamous Epithelial Cells Few /LPF Urine Amorphous Sediment Present /HPF Urine Bacteria 0 /HPF (0-FEW) Urine Mucus Slight /LPF Glucose (Fingerstick) 199 mg/dL (70-99) 191 mg/dL (70-99) Test 04/09/19 01:55 04/09/19 02:23 04/09/19 07:56 04/09/19 10:00 White Blood Count 17.6 x10^3/uL (4.0-11.0) 21.2 x10^3/uL (4.0-11.0) Red Blood Count 4.58 x10^6/uL (3.50-5.40) 4.60 x10^6/uL (3.50-5.40) Hemoglobin 13.1 g/dL (12.0-15.5) 13.4 g/dL (12.0-15.5) Hematocrit 39.5 % (36.0-47.0) 39.6 % (36.0-47.0) Mean Corpuscular Volume 86 fL (79-100) 86 fL (79-100) Mean Corpuscular Hemoglobin 29 pg (25-35) 29 pg (25-35) Mean Corpuscular Hemoglobin Concent 33 g/dL (31-37) 34 g/dL (31-37) Red Cell Distribution Width 13.2 % (11.5-14.5) 13.2 % (11.5-14.5) Platelet Count 278 x10^3/uL (140-400) 302 x10^3/uL (140-400) Neutrophils (%) (Auto) 94 % (31-73) 88 % (31-73) Lymphocytes (%) (Auto) 4 % (24-48) 7 % (24-48) Monocytes (%) (Auto) 2 % (0-9) 4 % (0-9) Eosinophils (%) (Auto) 0 % (0-3) 0 % (0-3) Basophils (%) (Auto) 0 % (0-3) 1 % (0-3) Neutrophils # (Auto) 16.6 x10^3uL (1.8-7.7) 18.7 x10^3uL (1.8-7.7) Lymphocytes # (Auto) 0.6 x10^3/uL (1.0-4.8) 1.5 x10^3/uL (1.0-4.8) Monocytes # (Auto) 0.3 x10^3/uL (0.0-1.1) 0.9 x10^3/uL (0.0-1.1) Eosinophils # (Auto) 0.0 x10^3/uL (0.0-0.7) 0.0 x10^3/uL (0.0-0.7) Basophils # (Auto) 0.0 x10^3/uL (0.0-0.2) 0.1 x10^3/uL (0.0-0.2) Sodium Level 138 mmol/L (136-145) Potassium Level 3.4 mmol/L (3.5-5.1) Chloride Level 100 mmol/L (98-107) Carbon Dioxide Level 26 mmol/L (21-32) Anion Gap 12 (6-14) Blood Urea Nitrogen 13 mg/dL (7-20) Creatinine 1.0 mg/dL (0.6-1.0) Estimated GFR (Cockcroft-Gault) 54.1 Glucose Level 207 mg/dL (70-99) Lactic Acid Level 3.1 mmol/L (0.4-2.0) 2.9 mmol/L (0.4-2.0) Calcium Level 7.7 mg/dL (8.5-10.1) Glucose (Fingerstick) 192 mg/dL (70-99) 287 mg/dL (70-99) Test 04/09/19 11:12 Glucose (Fingerstick) 222 mg/dL (70-99) VTE Prophylaxis Ordered VTE Prophylaxis Devices: Yes VTE Pharmacological Prophylaxi: No Assessment/Plan Assessment/Plan Acute appendicitis status post laparoscopic appendectomy History of CVA with no residual deficits of the present time 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
[2019-04-09] MEDS: LACTOBACILLUS RHAMNOSUS GG 1 CAPSULE. PO SCH (20:19)
[2019-04-10] MEDS: POTASSIUM CL 20MEQ-0.45% NACL 1,000 ML IV SCH ×3 (02:54→14:52)
[2019-04-10] MEDS: HYDROcodone/APAP 5/325MG 1 TAB TABLET PO PRN ×4 (03:15→17:25)
[2019-04-10 03:28] VITALS: BP 160/81
--- NOTE | 2019-04-10 04:19 | CONS ---
DATE OF CONSULTATION: 04/09/2019 REFERRING PHYSICIAN: Dr. Machado. REASON FOR CONSULTATION: Antibiotic management. HISTORY OF PRESENT ILLNESS: A 74-year-old female who presented to the ED on 04/08/2019 with complaints of lower abdominal pain, mainly on the right side, worse for several hours with constant ache, nausea, not getting relieved. She denied any fevers, chills, diarrhea, constipation, symptoms. Denies being on any antibiotics. White count was elevated at 18,000. Lactate of 3.4, lipase of 284. CK of 106. UA was negative for leukocyte esterase. Hypokalemia. CT of the abdomen revealed findings suggestive of acute appendicitis. The patient underwent a laparoscopic appendectomy on 04/09/2019 for gangrenous appendicitis with drain placement. The patient received a dose of Rocephin and Flagyl. ID consult has been requested for antibiotic management. Today, the patient is sitting in chair. Denies any fevers, chills, nausea, vomiting, diarrhea, symptoms, rash, shortness of breath, cough, chest pain with deep breathing, difficulty swallowing, oral sores headache or dizziness. The patient states postop pain is under control. CURRENT MEDICATION: Flagyl and Rocephin. ALLERGIES: PENICILLIN. The patient has tolerated Augmentin well. She usually gets HIVES WITH PENICILLIN. SHE CANNOT TOLERATE THE LEVAQUIN as she was hospitalized for a prolonged period of time for diarrhea, not C. diff per the patient at bedside. She had received Levaquin for sinusitis. SOCIAL HISTORY: Denies smoking, ETOH, or illicit drug use. PHYSICAL EXAMINATION: VITAL SIGNS: Temperature 100.2, pulse 105, respirations 16, blood pressure 134/63, oxygen saturation 93% on room air. GENERAL: Alert, oriented x 3 female sitting upright in chair, in no acute distress. HEENT: Normocephalic, atraumatic, anicteric. No thrush. NECK: Supple. No JVD. LUNGS: Clear bilaterally. No wheezing. HEART: S1, S2 with no gallops or murmurs. ABDOMEN: Mildly distended. Drain in place. Laparoscopic surgical dressing in place, did not remove. Bowel sounds present. EXTREMITIES: No edema, no cyanosis. DERMATOLOGIC: Warm, dry, no generalized rash. PSYCHIATRIC: Cooperative, appropriate. Appropriate mood and affect. MUSCULOSKELETAL: No joint swelling. LABORATORY DATA: WBC 17.6, hemoglobin 13.1, hematocrit 39.5, platelets 278. Sodium 138, potassium 3.4, chloride 100, bicarbonate 26, BUN 13, creatinine 1.0, glucose 207, lactate 3.1, calcium 7.7. UA shows negative leukocyte esterase, 5-3 wbc's. IMAGING: CT of the abdomen and pelvis shows findings consistent with acute appendicitis. IMPRESSION: 1. Sepsis. 2. Acute appendicitis, status post laparoscopic appendectomy for gangrenous appendix 04/09/2019. 3. Leukocytosis and lactic acidosis. 4. History of ALLERGIES TO PENICILLIN WITH HIVES. Has tolerated Augmentin. 5. History of INTOLERANCE TO LEVAQUIN with severe diarrhea requiring hospitalization. RECOMMENDATIONS: 1. Discontinue ceftriaxone and Flagyl. 2. Start the patient on Zosyn. 3. Follow up labs and cultures. 4. Continue supportive care. 5. General Surgery following. 6. Discussed with RN. Thank you for consulting Infectious Disease to participate in this patient's care. If you have any questions, do not hesitate to contact me. ELOISA PENNINGTON MD DR: LEISA/ekta JOB#: [id number] / [id number]
[2019-04-10] MEDS: PIPERACILLIN/TAZOBACTAM 3.375 GM in IV NORMAL SALINE 50ML 50 ML IV SCH ×4 (05:50→23:58)
[2019-04-10 07:00] VITALS: BP 151/72
--- NOTE | 2019-04-10 08:53 | PDOC ---
CIRILO MERCADO MACHINE FORMER 04/10/19 0853: SURGICAL PROGRESS NOTE Subjective pain managed no n/v no flatus yet would like more to eat Vital Signs Vital Signs Date Time Temp Pulse Resp B/P (MAP) Pulse Ox O2 Delivery O2 Flow Rate FiO2 04/10/19 07:07 Nasal Cannula 2.0 04/10/19 07:00 98.9 102 16 151/72 (98) 93 98.9 I&O Intake and Output 04/10/19 07:00 Intake Total 2320 ml Output Total 625 ml Balance 1695 ml Intake Oral 970 ml IV Total 1350 ml Output Urine Total 500 ml Drainage Total 125 ml # Voids 11 General: Alert, Oriented X3, Cooperative, No acute distress Abdomen: Soft, No tenderness, Other (drain serosang ) Labs Laboratory Tests Test 04/08/19 19:30 04/08/19 20:00 04/08/19 22:37 04/09/19 00:08 White Blood Count 18.2 x10^3/uL (4.0-11.0) Red Blood Count 5.02 x10^6/uL (3.50-5.40) Hemoglobin 14.4 g/dL (12.0-15.5) Hematocrit 43.6 % (36.0-47.0) Mean Corpuscular Volume 87 fL (79-100) Mean Corpuscular Hemoglobin 29 pg (25-35) Mean Corpuscular Hemoglobin Concent 33 g/dL (31-37) Red Cell Distribution Width 13.0 % (11.5-14.5) Platelet Count 296 x10^3/uL (140-400) Neutrophils (%) (Auto) 85 % (31-73) Lymphocytes (%) (Auto) 8 % (24-48) Monocytes (%) (Auto) 5 % (0-9) Eosinophils (%) (Auto) 1 % (0-3) Basophils (%) (Auto) 0 % (0-3) Neutrophils # (Auto) 15.5 x10^3uL (1.8-7.7) Lymphocytes # (Auto) 1.5 x10^3/uL (1.0-4.8) Monocytes # (Auto) 1.0 x10^3/uL (0.0-1.1) Eosinophils # (Auto) 0.2 x10^3/uL (0.0-0.7) Basophils # (Auto) 0.0 x10^3/uL (0.0-0.2) Segmented Neutrophils % 82 % (35-66) Lymphocytes % 12 % (24-48) Monocytes % 4 % (0-10) Eosinophils % 2 % (0-5) Platelet Estimate Adequate (ADEQUATE) Prothrombin Time 12.8 SEC (11.7-14.0) Prothromb Time International Ratio 1.0 (0.8-1.1) Sodium Level 138 mmol/L (136-145) Potassium Level 3.3 mmol/L (3.5-5.1) Chloride Level 96 mmol/L (98-107) Carbon Dioxide Level 28 mmol/L (21-32) Anion Gap 14 (6-14) Blood Urea Nitrogen 16 mg/dL (7-20) Creatinine 1.1 mg/dL (0.6-1.0) Estimated GFR (Cockcroft-Gault) 48.4 BUN/Creatinine Ratio 15 (6-20) Glucose Level 301 mg/dL (70-99) Lactic Acid Level 3.4 mmol/L (0.4-2.0) Calcium Level 8.5 mg/dL (8.5-10.1) Total Bilirubin 0.4 mg/dL (0.2-1.0) Aspartate Amino Transf (AST/SGOT) 19 U/L (15-37) Alanine Aminotransferase (ALT/SGPT) 47 U/L (14-59) Alkaline Phosphatase 75 U/L (46-116) Creatine Kinase 106 U/L (26-192) Total Protein 7.8 g/dL (6.4-8.2) Albumin 3.9 g/dL (3.4-5.0) Albumin/Globulin Ratio 1.0 (1.0-1.7) Lipase 284 U/L (73-393) Urine Collection Type Unknown Urine Color Yellow Urine Clarity Clear Urine pH 5.0 Urine Specific [place] 1.025 Urine Protein 100 mg/dL (NEG-TRACE) Urine Glucose (UA) >=1000 mg/dL (NEG) Urine Ketones (Stick) Negative mg/dL (NEG) Urine Blood Negative (NEG) Urine Nitrite Negative (NEG) Urine Bilirubin Negative (NEG) Urine Urobilinogen Dipstick 0.2 mg/dL (0.2 mg/dL) Urine Leukocyte Esterase Negative (NEG) Urine RBC 1-2 /HPF (0-2) Urine WBC 5-10 /HPF (0-4) Urine Squamous Epithelial Cells Few /LPF Urine Amorphous Sediment Present /HPF Urine Bacteria 0 /HPF (0-FEW) Urine Mucus Slight /LPF Glucose (Fingerstick) 199 mg/dL (70-99) 191 mg/dL (70-99) Test 04/09/19 01:55 04/09/19 02:23 04/09/19 07:56 04/09/19 10:00 White Blood Count 17.6 x10^3/uL (4.0-11.0) 21.2 x10^3/uL (4.0-11.0) Red Blood Count 4.58 x10^6/uL (3.50-5.40) 4.60 x10^6/uL (3.50-5.40) Hemoglobin 13.1 g/dL (12.0-15.5) 13.4 g/dL (12.0-15.5) Hematocrit 39.5 % (36.0-47.0) 39.6 % (36.0-47.0) Mean Corpuscular Volume 86 fL (79-100) 86 fL (79-100) Mean Corpuscular Hemoglobin 29 pg (25-35) 29 pg (25-35) Mean Corpuscular Hemoglobin Concent 33 g/dL (31-37) 34 g/dL (31-37) Red Cell Distribution Width 13.2 % (11.5-14.5) 13.2 % (11.5-14.5) Platelet Count 278 x10^3/uL (140-400) 302 x10^3/uL (140-400) Neutrophils (%) (Auto) 94 % (31-73) 88 % (31-73) Lymphocytes (%) (Auto) 4 % (24-48) 7 % (24-48) Monocytes (%) (Auto) 2 % (0-9) 4 % (0-9) Eosinophils (%) (Auto) 0 % (0-3) 0 % (0-3) Basophils (%) (Auto) 0 % (0-3) 1 % (0-3) Neutrophils # (Auto) 16.6 x10^3uL (1.8-7.7) 18.7 x10^3uL (1.8-7.7) Lymphocytes # (Auto) 0.6 x10^3/uL (1.0-4.8) 1.5 x10^3/uL (1.0-4.8) Monocytes # (Auto) 0.3 x10^3/uL (0.0-1.1) 0.9 x10^3/uL (0.0-1.1) Eosinophils # (Auto) 0.0 x10^3/uL (0.0-0.7) 0.0 x10^3/uL (0.0-0.7) Basophils # (Auto) 0.0 x10^3/uL (0.0-0.2) 0.1 x10^3/uL (0.0-0.2) Sodium Level 138 mmol/L (136-145) Potassium Level 3.4 mmol/L (3.5-5.1) Chloride Level 100 mmol/L (98-107) Carbon Dioxide Level 26 mmol/L (21-32) Anion Gap 12 (6-14) Blood Urea Nitrogen 13 mg/dL (7-20) Creatinine 1.0 mg/dL (0.6-1.0) Estimated GFR (Cockcroft-Gault) 54.1 Glucose Level 207 mg/dL (70-99) Lactic Acid Level 3.1 mmol/L (0.4-2.0) 2.9 mmol/L (0.4-2.0) Calcium Level 7.7 mg/dL (8.5-10.1) Glucose (Fingerstick) 192 mg/dL (70-99) 287 mg/dL (70-99) Test 04/09/19 11:12 04/09/19 15:00 04/09/19 16:39 04/09/19 21:11 Glucose (Fingerstick) 222 mg/dL (70-99) 158 mg/dL (70-99) 160 mg/dL (70-99) Lactic Acid Level 1.7 mmol/L (0.4-2.0) Test 04/10/19 08:17 Glucose (Fingerstick) 231 mg/dL (70-99) Laboratory Tests Test 04/09/19 10:00 04/09/19 11:12 04/09/19 15:00 04/09/19 16:39 White Blood Count 21.2 x10^3/uL (4.0-11.0) Red Blood Count 4.60 x10^6/uL (3.50-5.40) Hemoglobin 13.4 g/dL (12.0-15.5) Hematocrit 39.6 % (36.0-47.0) Mean Corpuscular Volume 86 fL (79-100) Mean Corpuscular Hemoglobin 29 pg (25-35) Mean Corpuscular Hemoglobin Concent 34 g/dL (31-37) Red Cell Distribution Width 13.2 % (11.5-14.5) Platelet Count 302 x10^3/uL (140-400) Neutrophils (%) (Auto) 88 % (31-73) Lymphocytes (%) (Auto) 7 % (24-48) Monocytes (%) (Auto) 4 % (0-9) Eosinophils (%) (Auto) 0 % (0-3) Basophils (%) (Auto) 1 % (0-3) Neutrophils # (Auto) 18.7 x10^3uL (1.8-7.7) Lymphocytes # (Auto) 1.5 x10^3/uL (1.0-4.8) Monocytes # (Auto) 0.9 x10^3/uL (0.0-1.1) Eosinophils # (Auto) 0.0 x10^3/uL (0.0-0.7) Basophils # (Auto) 0.1 x10^3/uL (0.0-0.2) Lactic Acid Level 2.9 mmol/L (0.4-2.0) 1.7 mmol/L (0.4-2.0) Glucose (Fingerstick) 222 mg/dL (70-99) 158 mg/dL (70-99) Test 04/09/19 21:11 04/10/19 08:17 Glucose (Fingerstick) 160 mg/dL (70-99) 231 mg/dL (70-99) Problem List Problems Medical Problems: (1) Acute appendicitis Status: Acute (2) Hyperglycemia Status: Acute (3) Sepsis Status: Acute (4) Uncontrolled diabetes mellitus Status: Acute Assessment/Plan s/p appy continue abx, trend WBC advance to full liquids FER ALMARAZ MD 04/10/19 1154: SURGICAL PROGRESS NOTE Assessment/Plan pt seen just back from a walk, daughter at bedside BIBI with serosanguineous output home whenever OK with IPC, ID Dr Prasad to follow over the weekend CIRILO MERCADO APRN April 10, 2019 08:53 FER ALMARAZ MD April 10, 2019 11:54
[2019-04-10] MEDS: DOCUSATE SODIUM 100 MG CAPSULE. PO SCH ×2 (09:00→21:41)
[2019-04-10] MEDS: LACTOBACILLUS RHAMNOSUS GG 1 CAPSULE. PO SCH ×2 (09:00→21:41)
[2019-04-10] MEDS: ENOXAPARIN 40 MG/0.4 ML SYRINGE. SQ SCH (09:00)
[2019-04-10] MEDS: INSULIN LISPRO 300 UNITS/3 ML INSULN.PEN. SQ SCH ×3 (09:05→17:33)
[2019-04-10 10:09] LABS: BASO # 0.1 x10^3/uL (0.0-0.2); BASO % 1 % (0-3); EOS # 0.1 x10^3/uL (0.0-0.7); EOS % 0 % (0-3); HEMATOCRIT 38.6 % (36.0-47.0); HEMOGLOBIN 13.1 g/dL (12.0-15.5); LYMPH # 1.6 x10^3/uL (1.0-4.8); LYMPH % 10 % (24-48); MEAN CORPUSCULAR HEMOGLOBIN 30 pg (25-35); MEAN CORPUSCULAR HGB CONC 34 g/dL (31-37); MEAN CORPUSCULAR VOLUME 87 fL (79-100); MONO # 1.1 x10^3/uL (0.0-1.1); MONO % 7 % (0-9); NEUT # 13.1 x10^3uL (1.8-7.7); NEUT % 82 % (31-73); PLATELET COUNT 255 x10^3/uL (140-400); RED BLOOD COUNT 4.43 x10^6/uL (3.50-5.40); RED CELL DISTRIBUTION WIDTH 13.6 % (11.5-14.5); WHITE BLOOD COUNT 16.1 x10^3/uL (4.0-11.0)
[2019-04-10 10:32] LABS: CALCIUM 7.3 mg/dL (8.5-10.1); CREATININE 1.1 mg/dL (0.6-1.0); GFR 48.4
[2019-04-10 11:00] VITALS: BP 121/61
--- NOTE | 2019-04-10 11:28 | PDOC ---
Infectious Disease Note Subjective: Subjective Pt is doing well postop pain is under control; no f/c/n/v/d no bm yet ambulating in hallways ROS: ROS Negative except for above. Vital Signs: Vital Signs Vital Signs Date Time Temp Pulse Resp B/P (MAP) Pulse Ox O2 Delivery O2 Flow Rate FiO2 04/10/19 10:10 Room Air 04/10/19 07:07 2.0 04/10/19 07:00 98.9 102 16 151/72 (98) 93 98.9 Physical Exam: PHYSICAL EXAM GENERAL: Alert, oriented x 3 female sitting upright in chair, in no acute distress. HEENT: Normocephalic, atraumatic, anicteric. No thrush. NECK: Supple. No JVD. LUNGS: Clear bilaterally. No wheezing. HEART: S1, S2 with no gallops or murmurs. ABDOMEN: Mildly distended. Drain in place. Laparoscopic surgical dressing in place, did not remove. Bowel sounds present. EXTREMITIES: No edema, no cyanosis. DERMATOLOGIC: Warm, dry, no generalized rash. PSYCHIATRIC: Cooperative, appropriate. Appropriate mood and affect. MUSCULOSKELETAL: No joint swelling. Medications: Inpatient Meds: Current Medications Medications (Trade) Dose Ordered Sig/Brenda Start Time Stop Time Status Last Admin Dose Admin Acetaminophen (Tylenol) 500 mg PRN Q6HRS PRN 04/08/19 21:15 Acetaminophen/ Hydrocodone Bitart (Lortab 5/325) 2 tab PRN Q4HRS PRN 04/09/19 00:15 Bupivacaine HCl/ Epinephrine Bitart (Sensorcain-Mpf Epi 0.5%-1:[id number]) 30 ml STK-MED ONCE 04/08/19 21:12 04/08/19 22:13 DC 04/08/19 23:09 30 ML Ceftriaxone Sodium (Rocephin) 1 gm 1X ONCE 04/08/19 21:00 04/08/19 21:05 DC 04/08/19 21:38 1 GM Dexamethasone Sodium Phosphate (Decadron) 4 mg STK-MED ONCE 04/08/19 22:11 04/08/19 22:12 DC Dextrose (Dextrose 50%-Water Syringe) 12.5 gm PRN Q15MIN PRN 04/09/19 03:00 Diphenhydramine HCl (Benadryl) 25 mg PRN Q6HRS PRN 5/30/19 00:15 Docusate Sodium (Colace) 100 mg BID 04/09/19 09:00 04/10/19 09:00 100 MG Enoxaparin Sodium (Lovenox 40mg Syringe) 40 mg Q24H 04/09/19 09:00 04/10/19 09:00 40 MG Ephedrine Sulfate (ePHEDrine PF IN SALINE SYRINGE) 50 mg STK-MED ONCE 04/08/19 22:11 04/08/19 22:12 DC Esmolol HCl (Brevibloc) 100 mg STK-MED ONCE 04/08/19 23:29 04/08/19 23:30 DC Fentanyl Citrate (Fentanyl 2ml Vial) 50 mcg PRN Q5MIN PRN 04/08/19 22:15 04/09/19 22:14 DC Glycopyrrolate (Robinul) 1 mg STK-MED ONCE 04/08/19 23:17 04/08/19 23:18 DC Hydromorphone HCl (Dilaudid) 1 mg PRN Q4HRS PRN 04/09/19 00:15 Insulin Human Lispro (HumaLOG VIAL) 0-10 units SSI PRN 04/08/19 22:15 04/09/19 02:57 DC 04/09/19 00:13 4 UNIT Insulin Human Lispro (HumaLOG) 0-5 UNITS TIDWMEALS 04/09/19 08:00 04/10/19 09:05 3 UNITS Lactobacillus Rhamnosus (Culturelle) 1 cap BID 04/09/19 21:00 04/10/19 09:00 1 CAP Levofloxacin/ Dextrose 100 ml @ 100 mls/hr Q24H 04/08/19 21:30 04/08/19 21:58 DC Levofloxacin/ Dextrose (Levaquin Per Pharmacy) 1 each PRN DAILY PRN 04/08/19 21:15 04/08/19 21:58 DC Lidocaine HCl (Lidocaine Pf 2% Vial) 5 ml STK-MED ONCE 04/08/19 22:10 04/08/19 22:11 DC Metronidazole 100 ml @ 100 mls/hr Q12HR 04/09/19 09:00 04/09/19 10:30 DC 04/09/19 08:45 100 MLS/HR Morphine Sulfate (Morphine Sulfate) 1 mg PRN Q10MIN PRN 04/08/19 22:15 04/09/19 22:14 DC Neostigmine Methylsulfate (Neostigmine Methylsulfate) 5 mg STK-MED ONCE 04/08/19 23:17 04/08/19 23:18 DC Ondansetron HCl (Zofran) 4 mg PRN Q6HRS PRN 04/09/19 00:30 Piperacillin Sod/ Tazobactam Sod 3.375 gm/Sodium Chloride 50 ml @ 100 mls/hr Q6HRS 04/09/19 12:00 04/10/19 05:50 100 MLS/HR Potassium Chloride/Dextrose/ Sod Cl 1,000 ml @ 75 mls/hr [id number] 04/08/19 21:15 04/08/19 21:58 DC Potassium Chloride/Sodium Chloride 1,000 ml @ 100 mls/hr Q10H 04/09/19 00:30 04/10/19 02:54 100 MLS/HR Potassium Chloride (Klor-Con) 40 meq 1X ONCE 04/09/19 09:00 04/09/19 09:01 DC 04/09/19 11:34 40 MEQ Prochlorperazine Edisylate (Compazine) 5 mg PACU PRN PRN 04/08/19 22:15 04/09/19 22:14 DC Propofol 20 ml @ As Directed STK-MED ONCE 04/08/19 22:10 04/08/19 22:11 DC Ringer's Solution 1,000 ml @ 30 mls/hr Q24H 04/08/19 22:15 04/09/19 10:14 DC 04/08/19 22:49 30 MLS/HR Rocuronium [place] (Zemuron) 50 mg STK-MED ONCE 04/08/19 22:11 04/08/19 22:12 DC Sodium Chloride (Normal Saline Flush) 3 ml QSHIFT PRN 04/09/19 00:15 Succinylcholine Chloride (Anectine) 200 mg STK-MED ONCE 04/08/19 22:12 04/08/19 22:13 DC Labs: Lab Laboratory Tests Test 04/09/19 15:00 04/09/19 16:39 04/09/19 21:11 5/31/19 08:17 Lactic Acid Level 1.7 mmol/L (0.4-2.0) Glucose (Fingerstick) 158 mg/dL (70-99) 160 mg/dL (70-99) 231 mg/dL (70-99) Test 04/10/19 09:40 04/10/19 09:48 04/10/19 11:18 White Blood Count 16.1 x10^3/uL (4.0-11.0) Red Blood Count 4.43 x10^6/uL (3.50-5.40) Hemoglobin 13.1 g/dL (12.0-15.5) Hematocrit 38.6 % (36.0-47.0) Mean Corpuscular Volume 87 fL (79-100) Mean Corpuscular Hemoglobin 30 pg (25-35) Mean Corpuscular Hemoglobin Concent 34 g/dL (31-37) Red Cell Distribution Width 13.6 % (11.5-14.5) Platelet Count 255 x10^3/uL (140-400) Neutrophils (%) (Auto) 82 % (31-73) Lymphocytes (%) (Auto) 10 % (24-48) Monocytes (%) (Auto) 7 % (0-9) Eosinophils (%) (Auto) 0 % (0-3) Basophils (%) (Auto) 1 % (0-3) Neutrophils # (Auto) 13.1 x10^3uL (1.8-7.7) Lymphocytes # (Auto) 1.6 x10^3/uL (1.0-4.8) Monocytes # (Auto) 1.1 x10^3/uL (0.0-1.1) Eosinophils # (Auto) 0.1 x10^3/uL (0.0-0.7) Basophils # (Auto) 0.1 x10^3/uL (0.0-0.2) Sodium Level 136 mmol/L (136-145) Potassium Level 4.0 mmol/L (3.5-5.1) Chloride Level 99 mmol/L (98-107) Carbon Dioxide Level 26 mmol/L (21-32) Anion Gap 11 (6-14) Blood Urea Nitrogen 13 mg/dL (7-20) Creatinine 1.1 mg/dL (0.6-1.0) Estimated GFR (Cockcroft-Gault) 48.4 Glucose Level 256 mg/dL (70-99) Calcium Level 7.3 mg/dL (8.5-10.1) Glucose (Fingerstick) 221 mg/dL (70-99) Objective: Assessment: gangrenous appendicitis s/p Lap appendectomy 04/09 Leucocytosis and lactic acidosis PCN allergy hives Plan: Plan of Care Zosyn cont local care cont supportive care ELOISA PENNINGTON MD April 10, 2019 11:28
--- NOTE | 2019-04-10 13:06 | PDOC ---
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 Hypertension well controlled Hypothyroidism on replacement therapy Diabetes mellitus2 Plan: Resume home medications Pain management Incentive spirometry Encourage ambulation as per protection consultant Wound care as per protection consultant Further recommendations based on the clinical course, hopefully dismissed soon History of Present Illness History of Present Illness Patient continues to recover, she says she has not had a bowel movement and does not think she has passed gas, moderate discomfort over the abdominal area, I have encouraged more ambulation Vitals Vitals Vital Signs Date Time Temp Pulse Resp B/P (MAP) Pulse Ox O2 Delivery O2 Flow Rate FiO2 04/10/19 11:00 98.4 97 18 121/61 (81) 91 Room Air 98.4 04/10/19 07:07 2.0 Physical Exam Physical Exam GENERAL: Alert, oriented x 3 female sitting upright in chair, in no acute distress. HEENT: Normocephalic, atraumatic, anicteric. No thrush. NECK: Supple. No JVD. LUNGS: Clear bilaterally. No wheezing. HEART: S1, S2 with no gallops or murmurs. ABDOMEN: Mildly distended. Drain in place. Laparoscopic surgical dressing in place, did not remove. Bowel sounds present. EXTREMITIES: No edema, no cyanosis. DERMATOLOGIC: Warm, dry, no generalized rash. PSYCHIATRIC: Cooperative, appropriate. Appropriate mood and affect. MUSCULOSKELETAL: No joint swelling. General: Alert, Oriented X3, Cooperative, No acute distress Heart: Regular rate Abdomen: Soft, No tenderness, Other (drain serosang ) Labs LABS Laboratory Tests Test 04/09/19 15:00 04/09/19 16:39 04/09/19 21:11 04/10/19 08:17 Lactic Acid Level 1.7 mmol/L (0.4-2.0) Glucose (Fingerstick) 158 mg/dL (70-99) 160 mg/dL (70-99) 231 mg/dL (70-99) Test 04/10/19 09:40 04/10/19 09:48 04/10/19 11:18 White Blood Count 16.1 x10^3/uL (4.0-11.0) Red Blood Count 4.43 x10^6/uL (3.50-5.40) Hemoglobin 13.1 g/dL (12.0-15.5) Hematocrit 38.6 % (36.0-47.0) Mean Corpuscular Volume 87 fL (79-100) Mean Corpuscular Hemoglobin 30 pg (25-35) Mean Corpuscular Hemoglobin Concent 34 g/dL (31-37) Red Cell Distribution Width 13.6 % (11.5-14.5) Platelet Count 255 x10^3/uL (140-400) Neutrophils (%) (Auto) 82 % (31-73) Lymphocytes (%) (Auto) 10 % (24-48) Monocytes (%) (Auto) 7 % (0-9) Eosinophils (%) (Auto) 0 % (0-3) Basophils (%) (Auto) 1 % (0-3) Neutrophils # (Auto) 13.1 x10^3uL (1.8-7.7) Lymphocytes # (Auto) 1.6 x10^3/uL (1.0-4.8) Monocytes # (Auto) 1.1 x10^3/uL (0.0-1.1) Eosinophils # (Auto) 0.1 x10^3/uL (0.0-0.7) Basophils # (Auto) 0.1 x10^3/uL (0.0-0.2) Sodium Level 136 mmol/L (136-145) Potassium Level 4.0 mmol/L (3.5-5.1) Chloride Level 99 mmol/L (98-107) Carbon Dioxide Level 26 mmol/L (21-32) Anion Gap 11 (6-14) Blood Urea Nitrogen 13 mg/dL (7-20) Creatinine 1.1 mg/dL (0.6-1.0) Estimated GFR (Cockcroft-Gault) 48.4 Glucose Level 256 mg/dL (70-99) Calcium Level 7.3 mg/dL (8.5-10.1) Glucose (Fingerstick) 221 mg/dL (70-99) Review of Systems Review of Systems pertinent as per hpi otherwise 10 point refidwe os system is negative. Assessment and Plan Assessmemt and Plan Problems Medical Problems: (1) Acute appendicitis Status: Acute (2) Hyperglycemia Status: Acute (3) Sepsis Status: Acute (4) Uncontrolled diabetes mellitus Status: Acute Comment Review of Relevant I have reviewed the following items sherry (where applicable) has been applied. Labs Laboratory Tests Test 04/08/19 19:30 04/08/19 20:00 04/08/19 22:37 04/09/19 00:08 White Blood Count 18.2 x10^3/uL (4.0-11.0) Red Blood Count 5.02 x10^6/uL (3.50-5.40) Hemoglobin 14.4 g/dL (12.0-15.5) Hematocrit 43.6 % (36.0-47.0) Mean Corpuscular Volume 87 fL (79-100) Mean Corpuscular Hemoglobin 29 pg (25-35) Mean Corpuscular Hemoglobin Concent 33 g/dL (31-37) Red Cell Distribution Width 13.0 % (11.5-14.5) Platelet Count 296 x10^3/uL (140-400) Neutrophils (%) (Auto) 85 % (31-73) Lymphocytes (%) (Auto) 8 % (24-48) Monocytes (%) (Auto) 5 % (0-9) Eosinophils (%) (Auto) 1 % (0-3) Basophils (%) (Auto) 0 % (0-3) Neutrophils # (Auto) 15.5 x10^3uL (1.8-7.7) Lymphocytes # (Auto) 1.5 x10^3/uL (1.0-4.8) Monocytes # (Auto) 1.0 x10^3/uL (0.0-1.1) Eosinophils # (Auto) 0.2 x10^3/uL (0.0-0.7) Basophils # (Auto) 0.0 x10^3/uL (0.0-0.2) Segmented Neutrophils % 82 % (35-66) Lymphocytes % 12 % (24-48) Monocytes % 4 % (0-10) Eosinophils % 2 % (0-5) Platelet Estimate Adequate (ADEQUATE) Prothrombin Time 12.8 SEC (11.7-14.0) Prothromb Time International Ratio 1.0 (0.8-1.1) Sodium Level 138 mmol/L (136-145) Potassium Level 3.3 mmol/L (3.5-5.1) Chloride Level 96 mmol/L (98-107) Carbon Dioxide Level 28 mmol/L (21-32) Anion Gap 14 (6-14) Blood Urea Nitrogen 16 mg/dL (7-20) Creatinine 1.1 mg/dL (0.6-1.0) Estimated GFR (Cockcroft-Gault) 48.4 BUN/Creatinine Ratio 15 (6-20) Glucose Level 301 mg/dL (70-99) Lactic Acid Level 3.4 mmol/L (0.4-2.0) Calcium Level 8.5 mg/dL (8.5-10.1) Total Bilirubin 0.4 mg/dL (0.2-1.0) Aspartate Amino Transf (AST/SGOT) 19 U/L (15-37) Alanine Aminotransferase (ALT/SGPT) 47 U/L (14-59) Alkaline Phosphatase 75 U/L (46-116) Creatine Kinase 106 U/L (26-192) Total Protein 7.8 g/dL (6.4-8.2) Albumin 3.9 g/dL (3.4-5.0) Albumin/Globulin Ratio 1.0 (1.0-1.7) Lipase 284 U/L (73-393) Urine Collection Type Unknown Urine Color Yellow Urine Clarity Clear Urine pH 5.0 Urine Specific [place] 1.025 Urine Protein 100 mg/dL (NEG-TRACE) Urine Glucose (UA) >=1000 mg/dL (NEG) Urine Ketones (Stick) Negative mg/dL (NEG) Urine Blood Negative (NEG) Urine Nitrite Negative (NEG) Urine Bilirubin Negative (NEG) Urine Urobilinogen Dipstick 0.2 mg/dL (0.2 mg/dL) Urine Leukocyte Esterase Negative (NEG) Urine RBC 1-2 /HPF (0-2) Urine WBC 5-10 /HPF (0-4) Urine Squamous Epithelial Cells Few /LPF Urine Amorphous Sediment Present /HPF Urine Bacteria 0 /HPF (0-FEW) Urine Mucus Slight /LPF Glucose (Fingerstick) 199 mg/dL (70-99) 191 mg/dL (70-99) Test 04/09/19 01:55 04/09/19 02:23 04/09/19 07:56 04/09/19 10:00 White Blood Count 17.6 x10^3/uL (4.0-11.0) 21.2 x10^3/uL (4.0-11.0) Red Blood Count 4.58 x10^6/uL (3.50-5.40) 4.60 x10^6/uL (3.50-5.40) Hemoglobin 13.1 g/dL (12.0-15.5) 13.4 g/dL (12.0-15.5) Hematocrit 39.5 % (36.0-47.0) 39.6 % (36.0-47.0) Mean Corpuscular Volume 86 fL (79-100) 86 fL (79-100) Mean Corpuscular Hemoglobin 29 pg (25-35) 29 pg (25-35) Mean Corpuscular Hemoglobin Concent 33 g/dL (31-37) 34 g/dL (31-37) Red Cell Distribution Width 13.2 % (11.5-14.5) 13.2 % (11.5-14.5) Platelet Count 278 x10^3/uL (140-400) 302 x10^3/uL (140-400) Neutrophils (%) (Auto) 94 % (31-73) 88 % (31-73) Lymphocytes (%) (Auto) 4 % (24-48) 7 % (24-48) Monocytes (%) (Auto) 2 % (0-9) 4 % (0-9) Eosinophils (%) (Auto) 0 % (0-3) 0 % (0-3) Basophils (%) (Auto) 0 % (0-3) 1 % (0-3) Neutrophils # (Auto) 16.6 x10^3uL (1.8-7.7) 18.7 x10^3uL (1.8-7.7) Lymphocytes # (Auto) 0.6 x10^3/uL (1.0-4.8) 1.5 x10^3/uL (1.0-4.8) Monocytes # (Auto) 0.3 x10^3/uL (0.0-1.1) 0.9 x10^3/uL (0.0-1.1) Eosinophils # (Auto) 0.0 x10^3/uL (0.0-0.7) 0.0 x10^3/uL (0.0-0.7) Basophils # (Auto) 0.0 x10^3/uL (0.0-0.2) 0.1 x10^3/uL (0.0-0.2) Sodium Level 138 mmol/L (136-145) Potassium Level 3.4 mmol/L (3.5-5.1) Chloride Level 100 mmol/L (98-107) Carbon Dioxide Level 26 mmol/L (21-32) Anion Gap 12 (6-14) Blood Urea Nitrogen 13 mg/dL (7-20) Creatinine 1.0 mg/dL (0.6-1.0) Estimated GFR (Cockcroft-Gault) 54.1 Glucose Level 207 mg/dL (70-99) Lactic Acid Level 3.1 mmol/L (0.4-2.0) 2.9 mmol/L (0.4-2.0) Calcium Level 7.7 mg/dL (8.5-10.1) Glucose (Fingerstick) 192 mg/dL (70-99) 287 mg/dL (70-99) Test 04/09/19 11:12 04/09/19 15:00 04/09/19 16:39 04/09/19 21:11 Glucose (Fingerstick) 222 mg/dL (70-99) 158 mg/dL (70-99) 160 mg/dL (70-99) Lactic Acid Level 1.7 mmol/L (0.4-2.0) Test 04/10/19 08:17 04/10/19 09:40 04/10/19 09:48 04/10/19 11:18 Glucose (Fingerstick) 231 mg/dL (70-99) 221 mg/dL (70-99) White Blood Count 16.1 x10^3/uL (4.0-11.0) Red Blood Count 4.43 x10^6/uL (3.50-5.40) Hemoglobin 13.1 g/dL (12.0-15.5) Hematocrit 38.6 % (36.0-47.0) Mean Corpuscular Volume 87 fL (79-100) Mean Corpuscular Hemoglobin 30 pg (25-35) Mean Corpuscular Hemoglobin Concent 34 g/dL (31-37) Red Cell Distribution Width 13.6 % (11.5-14.5) Platelet Count 255 x10^3/uL (140-400) Neutrophils (%) (Auto) 82 % (31-73) Lymphocytes (%) (Auto) 10 % (24-48) Monocytes (%) (Auto) 7 % (0-9) Eosinophils (%) (Auto) 0 % (0-3) Basophils (%) (Auto) 1 % (0-3) Neutrophils # (Auto) 13.1 x10^3uL (1.8-7.7) Lymphocytes # (Auto) 1.6 x10^3/uL (1.0-4.8) Monocytes # (Auto) 1.1 x10^3/uL (0.0-1.1) Eosinophils # (Auto) 0.1 x10^3/uL (0.0-0.7) Basophils # (Auto) 0.1 x10^3/uL (0.0-0.2) Sodium Level 136 mmol/L (136-145) Potassium Level 4.0 mmol/L (3.5-5.1) Chloride Level 99 mmol/L (98-107) Carbon Dioxide Level 26 mmol/L (21-32) Anion Gap 11 (6-14) Blood Urea Nitrogen 13 mg/dL (7-20) Creatinine 1.1 mg/dL (0.6-1.0) Estimated GFR (Cockcroft-Gault) 48.4 Glucose Level 256 mg/dL (70-99) Calcium Level 7.3 mg/dL (8.5-10.1) Laboratory Tests Test 04/09/19 15:00 04/09/19 16:39 04/09/19 21:11 04/10/19 08:17 Lactic Acid Level 1.7 mmol/L (0.4-2.0) Glucose (Fingerstick) 158 mg/dL (70-99) 160 mg/dL (70-99) 231 mg/dL (70-99) Test 04/10/19 09:40 04/10/19 09:48 04/10/19 11:18 White Blood Count 16.1 x10^3/uL (4.0-11.0) Red Blood Count 4.43 x10^6/uL (3.50-5.40) Hemoglobin 13.1 g/dL (12.0-15.5) Hematocrit 38.6 % (36.0-47.0) Mean Corpuscular Volume 87 fL (79-100) Mean Corpuscular Hemoglobin 30 pg (25-35) Mean Corpuscular Hemoglobin Concent 34 g/dL (31-37) Red Cell Distribution Width 13.6 % (11.5-14.5) Platelet Count 255 x10^3/uL (140-400) Neutrophils (%) (Auto) 82 % (31-73) Lymphocytes (%) (Auto) 10 % (24-48) Monocytes (%) (Auto) 7 % (0-9) Eosinophils (%) (Auto) 0 % (0-3) Basophils (%) (Auto) 1 % (0-3) Neutrophils # (Auto) 13.1 x10^3uL (1.8-7.7) Lymphocytes # (Auto) 1.6 x10^3/uL (1.0-4.8) Monocytes # (Auto) 1.1 x10^3/uL (0.0-1.1) Eosinophils # (Auto) 0.1 x10^3/uL (0.0-0.7) Basophils # (Auto) 0.1 x10^3/uL (0.0-0.2) Sodium Level 136 mmol/L (136-145) Potassium Level 4.0 mmol/L (3.5-5.1) Chloride Level 99 mmol/L (98-107) Carbon Dioxide Level 26 mmol/L (21-32) Anion Gap 11 (6-14) Blood Urea Nitrogen 13 mg/dL (7-20) Creatinine 1.1 mg/dL (0.6-1.0) Estimated GFR (Cockcroft-Gault) 48.4 Glucose Level 256 mg/dL (70-99) Calcium Level 7.3 mg/dL (8.5-10.1) Glucose (Fingerstick) 221 mg/dL (70-99) Microbiology 04/08/19 Blood Culture - Preliminary, Resulted NO GROWTH AFTER 1 DAY Medications Current Medications Sodium Chloride 1,000 ml @ 1,000 mls/hr Q1H IV Last administered on 04/08/19at 20:04; Start 04/08/19 at 19:33; Stop 04/08/19 at 20:32; Status DC Fentanyl Citrate (Fentanyl 2ml Vial) 50 mcg 1X ONCE IV Last administered on 04/08/19at 20:05; Start 04/08/19 at 19:45; Stop 04/08/19 at 19:56; Status DC Ondansetron HCl (Zofran) 4 mg 1X ONCE IV Last administered on 04/08/19at 20:04; Start 04/08/19 at 19:45; Stop 04/08/19 at 19:56; Status DC Piperacillin Sod/ Tazobactam Sod 3.375 gm/Sodium Chloride 50 ml @ 100 mls/hr 1X ONCE IV ; Start 04/08/19 at 20:30; Stop 04/08/19 at 21:58; Status DC Sodium Chloride 1,000 ml @ 150 mls/hr 1X ONCE IV ; Start 04/08/19 at 20:30; Stop 04/08/19 at 21:58; Status DC Ceftriaxone Sodium (Rocephin) 1 gm 1X ONCE IVP Last administered on 04/08/19at 21:38; Start 04/08/19 at 21:00; Stop 04/08/19 at 21:05; Status DC Metronidazole 100 ml @ 100 mls/hr 1X ONCE IV Last administered on 04/08/19at 21:38; Start 04/08/19 at 21:00; Stop 04/09/19 at 10:30; Status DC Levofloxacin/ Dextrose (Levaquin Per Pharmacy) 1 each PRN DAILY PRN MC SEE COMMENTS; Start 04/08/19 at 21:15; Stop 04/08/19 at 21:58; Status DC Fentanyl Citrate (Fentanyl 2ml Vial) 25 mcg PRN Q2HR PRN IV PAIN Last administe red on 04/08/19at 22:10; Start 04/08/19 at 21:15; Stop 04/09/19 at 02:57; Status DC Acetaminophen (Tylenol) 500 mg PRN Q6HRS PRN PO MILD PAIN / TEMP; Start 04/08/19 at 21:15 Ondansetron HCl (Zofran) 4 mg PRN Q6HRS PRN IV NAUSEA/VOMITING; Start 04/08/19 at 21:15; Stop 04/09/19 at 00:26; Status DC Potassium Chloride/Dextrose/ Sod Cl 1,000 ml @ 75 mls/hr [id number] IV ; Start 04/08/19 at 21:15; Stop 04/08/19 at 21:58; Status DC Levofloxacin/ Dextrose 100 ml @ 100 mls/hr Q24H IV ; Start 04/08/19 at 21:30; Stop 04/08/19 at 21:58; Status DC Potassium Chloride/Sodium Chloride 1,000 ml @ 75 mls/hr 1X ONCE IV Last administered on 04/09/19at 01:26; Start 04/08/19 at 22:15; Stop 04/09/19 at 11:34; Status DC Propofol 20 ml @ As Directed STK-MED ONCE IV ; Start 04/08/19 at 22:10; Stop 04/08/19 at 22:11; Status DC Lidocaine HCl (Lidocaine Pf 2% Vial) 5 ml STK-MED ONCE .ROUTE ; Start 04/08/19 at 22:10; Stop 04/08/19 at 22:11; Status DC Dexamethasone Sodium Phosphate (Decadron) 4 mg STK-MED ONCE .ROUTE ; Start 04/08 at 22:11; Stop 04/08/19 at 22:12; Status DC Ondansetron HCl (Zofran) 4 mg STK-MED ONCE .ROUTE ; Start 04/08/19 at 22:11; S top 04/08/19 at 22:12; Status DC Ephedrine Sulfate (ePHEDrine PF IN SALINE SYRINGE) 50 mg STK-MED ONCE IV ; Start 04/08/19 at 22:11; Stop 04/08/19 at 22:12; Status DC Rocuronium [place] (Zemuron) 50 mg STK-MED ONCE .ROUTE ; Start 04/08/19 at 22:11; Stop 04/08/19 at 22:12; Status DC Succinylcholine Chloride (Anectine) 200 mg STK-MED ONCE .ROUTE ; Start 04/08/19 at 22:12; Stop 04/08/19 at 22:13; Status DC Bupivacaine HCl/ Epinephrine Bitart (Sensorcain-Mpf Epi 0.5%-1:[id number]) 30 ml STK-MED ONCE .ROUTE Last administered on 04/08/19at 23:09; Start 04/08/19 at 21:12; Stop 04/08/19 at 22:13; Status DC Fentanyl Citrate (Fentanyl 2ml Vial) 100 mcg STK-MED ONCE .ROUTE ; Start 04/08/19 at 22:13; Stop 04/08/19 at 22:14; Status DC Ondansetron HCl (Zofran) 4 mg PRN Q6HRS PRN IV NAUSEA/VOMITING; Start 04/08/19 at 22:15; Stop 04/09/19 at 00:26; Status DC Fentanyl Citrate (Fentanyl 2ml Vial) 25 mcg PRN Q5MIN PRN IV MILD PAIN 1-3; Start 04/08/19 at 22:15; Stop 04/09/19 at 22:14; Status DC Fentanyl Citrate (Fentanyl 2ml Vial) 50 mcg PRN Q5MIN PRN IV MODERATE TO SEVERE PAIN; Start 04/08/19 at 22:15; Stop 04/09/19 at 22:14; Status DC Morphine Sulfate (Morphine Sulfate) 1 mg PRN Q10MIN PRN IV SEVERE PAIN 7-10; Start 04/08/19 at 22:15; Stop 04/09/19 at 22:14; Status DC Ringer's Solution 1,000 ml @ 30 mls/hr Q24H IV Last administered on 04/08/19at 22:49; Start 04/08/19 at 22:15; Stop 04/09/19 at 10:14; Status DC Hydromorphone HCl (Dilaudid) 0.5 mg PRN Q10MIN PRN IV SEV PAIN, Second choice; Start 04/08/19 at 22:15; Stop 04/09/19 at 22:14; Status DC Prochlorperazine Edisylate (Compazine) 5 mg PACU PRN PRN IV NAUSEA, MRX1; Start 04/08/19 at 22:15; Stop 04/09/19 at 22:14; Status DC Insulin Human Lispro (HumaLOG VIAL) 0-10 units SSI PRN SQ PER PROTOCOL Last administered on 04/09/19at 00:13; Start 04/08/19 at 22:15; Stop 04/09/19 at 02:57; Status DC Neostigmine Methylsulfate (Neostigmine Methylsulfate) 5 mg STK-MED ONCE .ROUTE ; Start 04/08/19 at 23:17; Stop 04/08/19 at 23:18; Status DC Glycopyrrolate (Robinul) 1 mg STK-MED ONCE .ROUTE ; Start 04/08/19 at 23:17; Stop 04/08/19 at 23:18; Status DC Esmolol HCl (Brevibloc) 100 mg STK-MED ONCE IVP ; Start 04/08/19 at 23:29; Stop 04/08/19 at 23:30; Status DC Diphenhydramine HCl (Benadryl) 25 mg PRN Q6HRS PRN PO ITCHING; Start 04/09/19 at 00:15 Enoxaparin Sodium (Lovenox 40mg Syringe) 40 mg Q24H SQ Last administered on 04/10/19at 09:00; Start 04/09/19 at 09:00 Sodium Chloride (Normal Saline Flush) 3 ml QSHIFT PRN IV AFTER MEDS AND BLOOD DRAWS; Start 04/09/19 at 00:15 Potassium Chloride/Sodium Chloride 1,000 ml @ 50 mls/hr Q20H IV Last administered on 04/10/19at 02:54; Start 04/09/19 at 00:30 Dextrose (Dextrose 50%-Water Syringe) 12.5 gm PRN Q15MIN PRN IV SEE COMMENTS; Start 04/09/19 at 00:15; Stop 04/09/19 at 09:11; Status DC Acetaminophen/ Hydrocodone Bitart (Lortab 5/325) 1 tab PRN Q4HRS PRN PO MODERATE PAIN Last administered on 04/10/19at 09:00; Start 04/09/19 at 00:15 Acetaminophen/ Hydrocodone Bitart (Lortab 5/325) 2 tab PRN Q4HRS PRN PO SEVERE PAIN; Start 04/09/19 at 00:15 Hydromorphone HCl (Dilaudid) 1 mg PRN Q4HRS PRN IV PAIN; Start 04/09/19 at 00:15 Docusate Sodium (Colace) 100 mg BID PO Last administered on 04/10/19at 09:00; Start 04/09/19 at 09:00 Ondansetron HCl (Zofran) 4 mg PRN Q6HRS PRN IV NAUESA, 1ST CHOICE; Start 04/09/19 at 00:30 Metronidazole 100 ml @ 100 mls/hr Q12HR IV Last administered on 04/09/19at 08:45; Start 04/09/19 at 09:00; Stop 04/09/19 at 10:30; Status DC Insulin Human Lispro (HumaLOG) 0-5 UNITS TIDWMEALS SQ Last administered on 04/10/19at 12:43; Start 04/09/19 at 08:00 Dextrose (Dextrose 50%-Water Syringe) 12.5 gm PRN Q15MIN PRN IV SEE COMMENTS; Start 04/09/19 at 03:00 Potassium Chloride (Klor-Con) 40 meq 1X ONCE PO Last administered on 04/09/19at 11:34; Start 04/09/19 at 09:00; Stop 04/09/19 at 09:01; Status DC Piperacillin Sod/ Tazobactam Sod 3.375 gm/Sodium Chloride 50 ml @ 100 mls/hr Q6HRS IV Last administered on 04/10/19at 12:34; Start 04/09/19 at 12:00 Lactobacillus Rhamnosus (Culturelle) 1 cap BID PO Last administered on 04/10/19at 09:00; Start 04/09/19 at 21:00 Active Scripts Active Reported Indapamide 2.5 Mg Tablet 1 Tab PO DAILY Ferrous Sulfate 325 Mg Tablet 1 Tab PO DAILY Children's Aspirin (Aspirin) 81 Mg Tab.chew 81 Mg PO DAILY Januvia (Sitagliptin Phosphate) 100 Mg Tablet 100 Mg PO DAILY Levothyroxine Sodium 150 Mcg Tablet 1 Tab PO DAILY Levothyroxine Sodium 175 Mcg Tablet 1 Tab PO WEEKLY Glyburide 5 Mg Tablet 2 Tab PO BID Lisinopril 40 Mg Tablet 1 Tab PO DAILY Metformin Hcl 1,000 Mg Tablet 1,000 Mg PO BID Vitals/I & O Vital Sign - Last 24 Hours 04/09/19 04/09/19 04/09/19 04/09/19 15:00 16:09 19:20 20:00 Temp 98.6 98.4 98.6 98.4 Pulse 89 94 Resp 16 18 B/P (MAP) 124/57 (79) 123/60 (81) Pulse Ox 93 92 O2 Delivery Room Air Room Air Room Air Room Air 04/09/19 04/09/19 04/10/19 04/10/19 20:22 23:32 03:15 03:28 Temp 98.5 99.5 98.5 99.5 Pulse 101 109 Resp 18 20 B/P (MAP) 136/65 (88) 160/81 (107) Pulse Ox 92 94 94 O2 Delivery Room Air Nasal Cannula Nasal Cannula Room Air O2 Flow Rate 2.0 2.0 04/10/19 04/10/19 04/10/19 04/10/19 04:15 07:00 07:07 09:00 Temp 98.9 98.9 Pulse 102 Resp 16 B/P (MAP) 151/72 (98) Pulse Ox 94 93 O2 Delivery Room Air Nasal Cannula Room Air O2 Flow Rate 2.0 2.0 04/10/19 04/10/19 10:10 11:00 Temp 98.4 98.4 Pulse 97 Resp 18 B/P (MAP) 121/61 (81) Pulse Ox 91 O2 Delivery Room Air Room Air Intake and Output 04/09/19 04/09/19 04/10/19 14:59 22:59 06:59 Intake Total 290 ml 400 ml 1630 ml Output Total 540 ml 25 ml 60 ml Balance -250 ml 375 ml 1570 ml BRANDEN MALDONADO MD April 10, 2019 13:06
--- NOTE | 2019-04-10 14:54 | NUR ---
SW following. [facility] has accepted pt. Discharge orders to be faxed to [phone] when pt is being discharged. RN notified.
[2019-04-10 15:00] VITALS: BP 134/67
[2019-04-10 19:00] VITALS: BP 134/83
[2019-04-10 23:00] VITALS: BP 144/88
[2019-04-11] MEDS: HYDROcodone/APAP 5/325MG 1 TAB TABLET PO PRN ×3 (01:46→13:18)
[2019-04-11 03:00] VITALS: BP 153/69
[2019-04-11] MEDS: PIPERACILLIN/TAZOBACTAM 3.375 GM in IV NORMAL SALINE 50ML 50 ML IV SCH ×2 (05:33→12:19)
[2019-04-11 07:00] VITALS: BP 155/93
--- NOTE | 2019-04-11 08:55 | PDOC ---
SURGICAL PROGRESS NOTE Subjective Patient feeling much better this morning no complaints Vital Signs Vital Signs Date Time Temp Pulse Resp B/P (MAP) Pulse Ox O2 Delivery O2 Flow Rate FiO2 04/11/19 03:00 98.7 96 18 153/69 (97) 94 Room Air 98.7 04/10/19 07:07 2.0 I&O Intake and Output 04/11/19 07:00 Intake Total 1100 ml Output Total 30 ml Balance 1070 ml IV Total 1100 ml Drainage Total 30 ml # Voids 4 PATIENT HAS A THAYER: No General: Alert, Oriented X3, Cooperative, mild distress Abdomen: Normal bowel sounds, Soft, No tenderness, Other (BIBI drain intact with serosanguineous drainage) Labs Laboratory Tests Test 04/09/19 10:00 04/09/19 11:12 04/09/19 15:00 04/09/19 16:39 White Blood Count 21.2 x10^3/uL (4.0-11.0) Red Blood Count 4.60 x10^6/uL (3.50-5.40) Hemoglobin 13.4 g/dL (12.0-15.5) Hematocrit 39.6 % (36.0-47.0) Mean Corpuscular Volume 86 fL (79-100) Mean Corpuscular Hemoglobin 29 pg (25-35) Mean Corpuscular Hemoglobin Concent 34 g/dL (31-37) Red Cell Distribution Width 13.2 % (11.5-14.5) Platelet Count 302 x10^3/uL (140-400) Neutrophils (%) (Auto) 88 % (31-73) Lymphocytes (%) (Auto) 7 % (24-48) Monocytes (%) (Auto) 4 % (0-9) Eosinophils (%) (Auto) 0 % (0-3) Basophils (%) (Auto) 1 % (0-3) Neutrophils # (Auto) 18.7 x10^3uL (1.8-7.7) Lymphocytes # (Auto) 1.5 x10^3/uL (1.0-4.8) Monocytes # (Auto) 0.9 x10^3/uL (0.0-1.1) Eosinophils # (Auto) 0.0 x10^3/uL (0.0-0.7) Basophils # (Auto) 0.1 x10^3/uL (0.0-0.2) Lactic Acid Level 2.9 mmol/L (0.4-2.0) 1.7 mmol/L (0.4-2.0) Glucose (Fingerstick) 222 mg/dL (70-99) 158 mg/dL (70-99) Test 04/09/19 21:11 04/10/19 08:17 04/10/19 09:40 04/10/19 09:48 Glucose (Fingerstick) 160 mg/dL (70-99) 231 mg/dL (70-99) White Blood Count 16.1 x10^3/uL (4.0-11.0) Red Blood Count 4.43 x10^6/uL (3.50-5.40) Hemoglobin 13.1 g/dL (12.0-15.5) Hematocrit 38.6 % (36.0-47.0) Mean Corpuscular Volume 87 fL (79-100) Mean Corpuscular Hemoglobin 30 pg (25-35) Mean Corpuscular Hemoglobin Concent 34 g/dL (31-37) Red Cell Distribution Width 13.6 % (11.5-14.5) Platelet Count 255 x10^3/uL (140-400) Neutrophils (%) (Auto) 82 % (31-73) Lymphocytes (%) (Auto) 10 % (24-48) Monocytes (%) (Auto) 7 % (0-9) Eosinophils (%) (Auto) 0 % (0-3) Basophils (%) (Auto) 1 % (0-3) Neutrophils # (Auto) 13.1 x10^3uL (1.8-7.7) Lymphocytes # (Auto) 1.6 x10^3/uL (1.0-4.8) Monocytes # (Auto) 1.1 x10^3/uL (0.0-1.1) Eosinophils # (Auto) 0.1 x10^3/uL (0.0-0.7) Basophils # (Auto) 0.1 x10^3/uL (0.0-0.2) Sodium Level 136 mmol/L (136-145) Potassium Level 4.0 mmol/L (3.5-5.1) Chloride Level 99 mmol/L (98-107) Carbon Dioxide Level 26 mmol/L (21-32) Anion Gap 11 (6-14) Blood Urea Nitrogen 13 mg/dL (7-20) Creatinine 1.1 mg/dL (0.6-1.0) Estimated GFR (Cockcroft-Gault) 48.4 Glucose Level 256 mg/dL (70-99) Calcium Level 7.3 mg/dL (8.5-10.1) Test 04/10/19 11:18 04/10/19 16:52 04/10/19 20:56 04/11/19 07:37 Glucose (Fingerstick) 221 mg/dL (70-99) 230 mg/dL (70-99) 234 mg/dL (70-99) 188 mg/dL (70-99) Laboratory Tests Test 04/10/19 09:40 04/10/19 09:48 04/10/19 11:18 04/10/19 16:52 White Blood Count 16.1 x10^3/uL (4.0-11.0) Red Blood Count 4.43 x10^6/uL (3.50-5.40) Hemoglobin 13.1 g/dL (12.0-15.5) Hematocrit 38.6 % (36.0-47.0) Mean Corpuscular Volume 87 fL (79-100) Mean Corpuscular Hemoglobin 30 pg (25-35) Mean Corpuscular Hemoglobin Concent 34 g/dL (31-37) Red Cell Distribution Width 13.6 % (11.5-14.5) Platelet Count 255 x10^3/uL (140-400) Neutrophils (%) (Auto) 82 % (31-73) Lymphocytes (%) (Auto) 10 % (24-48) Monocytes (%) (Auto) 7 % (0-9) Eosinophils (%) (Auto) 0 % (0-3) Basophils (%) (Auto) 1 % (0-3) Neutrophils # (Auto) 13.1 x10^3uL (1.8-7.7) Lymphocytes # (Auto) 1.6 x10^3/uL (1.0-4.8) Monocytes # (Auto) 1.1 x10^3/uL (0.0-1.1) Eosinophils # (Auto) 0.1 x10^3/uL (0.0-0.7) Basophils # (Auto) 0.1 x10^3/uL (0.0-0.2) Sodium Level 136 mmol/L (136-145) Potassium Level 4.0 mmol/L (3.5-5.1) Chloride Level 99 mmol/L (98-107) Carbon Dioxide Level 26 mmol/L (21-32) Anion Gap 11 (6-14) Blood Urea Nitrogen 13 mg/dL (7-20) Creatinine 1.1 mg/dL (0.6-1.0) Estimated GFR (Cockcroft-Gault) 48.4 Glucose Level 256 mg/dL (70-99) Calcium Level 7.3 mg/dL (8.5-10.1) Glucose (Fingerstick) 221 mg/dL (70-99) 230 mg/dL (70-99) Test 04/10/19 20:56 04/11/19 07:37 Glucose (Fingerstick) 234 mg/dL (70-99) 188 mg/dL (70-99) Problem List Problems Medical Problems: (1) Acute appendicitis Status: Acute (2) Hyperglycemia Status: Acute (3) Sepsis Status: Acute (4) Uncontrolled diabetes mellitus Status: Acute Assessment/Plan Status post laparoscopic appendectomy for gangrenous appendix white count 16,000 improved from yesterday Would agree with discharge to home when appropriate and recommended by SLOANE and YASSINE MARINO MD Apr 11, 2019 08:55
[2019-04-11] MEDS: ENOXAPARIN 40 MG/0.4 ML SYRINGE. SQ SCH (09:08)
[2019-04-11] MEDS: LACTOBACILLUS RHAMNOSUS GG 1 CAPSULE. PO SCH (09:08)
[2019-04-11] MEDS: DOCUSATE SODIUM 100 MG CAPSULE. PO SCH (09:08)
[2019-04-11] MEDS: INSULIN LISPRO 300 UNITS/3 ML INSULN.PEN. SQ SCH ×2 (09:20→12:27)
[2019-04-11 11:00] VITALS: BP 139/69
[2019-04-11 15:00] VITALS: BP 127/81
--- NOTE | 2019-04-11 15:01 | PDOC ---
Infectious Disease Note Subjective Subjective Feeling pretty alright Pain controlled Ambulating No appetite No BM + flatus No N/V/F/C ROS ROS per HPI Vital Sign Vital Signs Vital Signs Date Time Temp Pulse Resp B/P (MAP) Pulse Ox O2 Delivery O2 Flow Rate FiO2 04/11/19 14:19 20 Room Air 04/11/19 11:00 98.6 90 139/69 (92) 94 98.6 04/10/19 07:07 2.0 Physical Exam PHYSICAL EXAM GENERAL: Propped up in bed, alert, NAD HEENT: Oral cavity clear NECK: Supple. LUNGS: Clear bilaterally. No wheezing. HEART: S1, S2 with no gallops or murmurs. ABDOMEN: Mildly distended, soft, BS present, BIBI in place. Lap surgical dressings in place, did not remove. EXTREMITIES: No edema, no cyanosis. DERMATOLOGIC: Warm, dry, no generalized rash. Labs Lab Laboratory Tests Test 04/10/19 16:52 04/10/19 20:56 04/11/19 07:37 04/11/19 11:45 Glucose (Fingerstick) 230 mg/dL (70-99) 234 mg/dL (70-99) 188 mg/dL (70-99) 239 mg/dL (70-99) Micro Microbiology 04/08/19 Blood Culture - Preliminary, Resulted NO GROWTH AFTER 2 DAYS Objective Assessment Gangrenous appendicitis s/p lap appendectomy 04/09 Leucocytosis Lactic acidosis, better PCN allergy hives; Levaquin Plan Plan of Care Zosyn Anticipating home soon D/w daughter Waiting/ambulating/+ Flatus.- drain in place still (per surgery) Home with Augmentin for 10 days F/u Gen surg D/w daughter D/w nursing D/w SEEMA Addison APRN Apr 11, 2019 15:01 DANIELE PIERSON MD Apr 11, 2019 16:01
[2019-04-11] MEDS ORDERED: FLUC150T PO (15:10)
[2019-04-11] MEDS ORDERED: AMOX1TAB61 PO (15:10)
[2019-04-11] MEDS ORDERED: LACT1CAP19 PO (15:10)
[2019-04-11] MEDS ORDERED: HYDR-2761 PO (15:11)
--- NOTE | 2019-04-11 15:14 | PDOC3 ---
Discharge Summary Visit Information Date of Admission: April 09, 2019 Date of Discharge: Apr 11, 2019 Admitting Diagnosis: acute appendicitis Final Diagnosis Problems Medical Problems: (1) Acute appendicitis Status: Acute (2) Hyperglycemia Status: Acute (3) Sepsis Status: Acute (4) Uncontrolled diabetes mellitus Status: Acute Brief Hospital Course Allergies Allergies Coded Allergies Type Severity Reaction Last Updated Verified levofloxacin Allergy Severe severe diarrhea 04/09/19 Yes Penicillins Adverse Reaction Intermediate itching 04/08/19 Yes Vital Signs Vital Signs Date Time Temp Pulse Resp B/P (MAP) Pulse Ox O2 Delivery O2 Flow Rate FiO2 04/11/19 14:19 20 Room Air 04/11/19 11:00 98.6 90 139/69 (92) 94 98.6 04/11/19 08:00 2.0 Lab Results Laboratory Tests Test 04/09/19 16:39 04/09/19 21:11 04/10/19 08:17 04/10/19 09:40 Glucose (Fingerstick) 158 mg/dL (70-99) 160 mg/dL (70-99) 231 mg/dL (70-99) White Blood Count 16.1 x10^3/uL (4.0-11.0) Red Blood Count 4.43 x10^6/uL (3.50-5.40) Hemoglobin 13.1 g/dL (12.0-15.5) Hematocrit 38.6 % (36.0-47.0) Mean Corpuscular Volume 87 fL (79-100) Mean Corpuscular Hemoglobin 30 pg (25-35) Mean Corpuscular Hemoglobin Concent 34 g/dL (31-37) Red Cell Distribution Width 13.6 % (11.5-14.5) Platelet Count 255 x10^3/uL (140-400) Neutrophils (%) (Auto) 82 % (31-73) Lymphocytes (%) (Auto) 10 % (24-48) Monocytes (%) (Auto) 7 % (0-9) Eosinophils (%) (Auto) 0 % (0-3) Basophils (%) (Auto) 1 % (0-3) Neutrophils # (Auto) 13.1 x10^3uL (1.8-7.7) Lymphocytes # (Auto) 1.6 x10^3/uL (1.0-4.8) Monocytes # (Auto) 1.1 x10^3/uL (0.0-1.1) Eosinophils # (Auto) 0.1 x10^3/uL (0.0-0.7) Basophils # (Auto) 0.1 x10^3/uL (0.0-0.2) Test 04/10/19 09:48 04/10/19 11:18 04/10/19 16:52 04/10/19 20:56 Sodium Level 136 mmol/L (136-145) Potassium Level 4.0 mmol/L (3.5-5.1) Chloride Level 99 mmol/L (98-107) Carbon Dioxide Level 26 mmol/L (21-32) Anion Gap 11 (6-14) Blood Urea Nitrogen 13 mg/dL (7-20) Creatinine 1.1 mg/dL (0.6-1.0) Estimated GFR (Cockcroft-Gault) 48.4 Glucose Level 256 mg/dL (70-99) Calcium Level 7.3 mg/dL (8.5-10.1) Glucose (Fingerstick) 221 mg/dL (70-99) 230 mg/dL (70-99) 234 mg/dL (70-99) Test 04/11/19 07:37 04/11/19 11:45 Glucose (Fingerstick) 188 mg/dL (70-99) 239 mg/dL (70-99) Laboratory Tests Test 04/10/19 16:52 04/10/19 20:56 04/11/19 07:37 04/11/19 11:45 Glucose (Fingerstick) 230 mg/dL (70-99) 234 mg/dL (70-99) 188 mg/dL (70-99) 239 mg/dL (70-99) Brief Hospital Course Patient is a 74 year old female whto was in her usual state of health until the night of her admission when she presented acute onset of abdominal pain that started over the right lkower quadrant sudden onset, associated with nausea, no fever or chills reported. She does rpeort feeling clammy with the painful episode, no dietary transgression has been reported, she denies vomiting, no diarrhea. No blod in the stools no urinary symtpoms reported, no chest pain palpitation or shortness of breath reported. Patient was admitted and taken to the OR where she underwent and laparsocopic appendectomy She is in no apparent distress during my visit. no concerns were voiced by the patient nor the famikly .Patient does have a slight facial droop as a consequence of a stroke years ago. Patient recovered well from her surgery she has not had a bowel movement as of the time of this dictation. Patient overall feels much improved and there is a penicillin allergy listed but she has been receiving Zosyn during her hospital stay and has not had adverse reactions. I have left a prescription for amoxicillin and also Diflucan just in case she develops candidiasis. I have also provided with a probiotic prescription she was deemed appropriate from the surgical standpoint of view to be dismissed from the hospital. I have encourage her to follow up with her primary care physician and with Dr. Machado in the outpatient setting signs and symptoms of alarm were discussed prior to discharge all of her concerns were addressed to the best of my abilities Discharge Information Condition at Discharge: Improved Follow Up: Weeks Disposition/Orders: D/C to Home Scheduled Amoxicillin/Potassium Clav (Augmentin 875-125 Tablet) 1 Each Tablet, 1 TAB PO BID for appendicitis, #14 Prescribed by: BRANDEN MALDONADO MD on 04/11/190 Aspirin (Children's Aspirin) 81 Mg Tab.chew, 81 MG PO DAILY for , (Reported) Entered as Reported by: PAM RICHARD RN on 04/09/19324 Last Taken: Unknown Dose on Unknown Date & Time Last Action: Reviewed on 04/09/19326 by PAM RICHARD RN Ferrous Sulfate (Ferrous Sulfate) 325 Mg Tablet, 1 TAB PO DAILY for , #30 Ref 3 (Reported) Entered as Reported by: PAM RICHARD RN on 04/09/19325 Last Taken: Unknown Dose on Unknown Date & Time Last Action: Reviewed on 04/09/19326 by PAM RICHARD RN Fluconazole (Diflucan) 150 Mg Tablet, 1 TAB PO ONCE for prophylaxis, #1 Ref 1 Prescribed by: BRANDEN MALDONADO MD on 04/11/19 1510 Glyburide (Glyburide) 5 Mg Tablet, 2 TAB PO BID for Anti-diabetic, #360 Ref 3 (Reported) Entered as Reported by: PAM RICHARD RN on 04/09/19318 Last Taken: Unknown Dose on Unknown Date & Time Last Action: Reviewed on 04/09/19326 by PAM RICHARD RN Indapamide (Indapamide) 2.5 Mg Tablet, 1 TAB PO DAILY for , #30 Ref 5 (Reported) Entered as Reported by: PAM RICHARD RN on 04/09/19325 Last Taken: Unknown Dose on Unknown Date & Time Last Action: Reviewed on 04/09/19326 by PAM RICHARD RN Lactobacillus Rhamnosus Gg (Culturelle) 1 Each Cap.sprink, 1 CAP PO BID for probiotic for 14 Days, #28 Prescribed by: BRANDEN MALDONADO MD on 04/11/19 1510 Levothyroxine Sodium (Levothyroxine Sodium) 175 Mcg Tablet, 1 TAB PO WEEKLY for Thyroid, #30 Ref 5 (Reported) Entered as Reported by: PAM RICHARD RN on 04/09/19320 Last Action: Reviewed on 04/09/19326 by PAM RICHARD RN Levothyroxine Sodium (Levothyroxine Sodium) 150 Mcg Tablet, 1 TAB PO DAILY for Thyroid, #30 Ref 5 (Reported) Entered as Reported by: PAM RICHARD RN on 04/09/19322 Last Taken: Unknown Dose on Unknown Date & Time Last Action: Reviewed on 04/09/19326 by PAM RICHARD RN Lisinopril (Lisinopril) 40 Mg Tablet, 1 TAB PO DAILY for High blood pressure, #30 Ref 5 (Reported) Entered as Reported by: PAM RICHARD RN on 04/09/19316 Last Taken: Unknown Dose on Unknown Date & Time Last Action: Reviewed on 04/09/19326 by PAM RICHARD RN Metformin Hcl (Metformin Hcl) 1,000 Mg Tablet, 1,000 MG PO BID for Anti- diabetic, (Reported) Entered as Reported by: PAM RICHARD RN on 04/09/19314 Last Taken: Unknown Dose on Unknown Date & Time Last Action: Reviewed on 04/09/19326 by PAM RICHARD RN Sitagliptin Phosphate (Januvia) 100 Mg Tablet, 100 MG PO DAILY for anti- diabetic, (Reported) Entered as Reported by: PAM RICHARD RN on 04/09/19323 Last Taken: Unknown Dose on Unknown Date & Time Last Action: Reviewed on 04/09/19326 by PAM RICHARD RN Scheduled PRN Hydrocodone Bit/Acetaminophen (Hydrocodone-Apap 5-325 ) 1 Tab Tablet, 1 TAB PO PRN Q4HRS PRN for SEVERE PAIN for 3 Days, #18 Prescribed by: BRANDEN MALDONADO MD on 04/11/19 1511 BRANDEN MALDONADO MD Apr 11, 2019 15:14
[2019-04-11] MEDS ORDERED: AMOXICILLIN/K CLAV 875/125MG TABLET. PO SCH (16:00)
--- NOTE | 2019-04-11 17:14 | NUR ---
Discharge teaching completed. IV site removed without difficulty. KEMAL site removed and site redressed. Teaching done on dressing changes with pt and family. Prescriptions given to patient/family. Pt states she understands her discharge teaching, wound care and follow-up. She was escorted out by staff; discharged to home with family. Addendum: 04/11/19 at 1717 by Jaci Paiz RN Physical therapy noted that no home health was needed from their standpoint; and surgery did not recommend home health since kemal site was discontinued, and family will be present to assist pt.
--- NOTE | 2019-04-13 13:07 | PATHOLOGY ---
[facility] Accession Number: [id number] . 01 Material submitted: . appendix - APPENDIX . 01 Clinical history: . Acute appendicitis . 02 Diagnosis: Appendix "appendix" appendectomy: - Acute suppurative appendicitis with acute inflammation extending into the periappendiceal fat with microabscess formation. (SHA:[facility] 04/13/2019) QTP/04/13/2019 . 02 Electronically signed: . Nilesh Devine MD, Pathologist NPI- [id number] . 01 Gross description: . Received in formalin, labeled "Kiana Dodson, appendix ", is an intact appendix (4.4 cm length x 1.2 cm diameter) and attached mesoappendix (5.2 x 1.2 x 0.7 cm). The proximal resection margin is closed by a linear staple line, 1.5 cm with an average 0.2 cm width. The staple line and the adjacent serosa is inked black. The yellow lobulated fatty tissue surrounding the tip is indurated. The distal tip and the surrounding fat is inked blue. The serosa is diffusely hemorrhagic and with a possible perforation that is 1.7 cm from the proximal resection margin. The lumen dilated and filled with soft fecal material and no discrete fecalith. The tip is fibrous with the adjacent adipose tissue consisting of a ortiz-white focus measuring 0.5 x 0.5 x 0.5 cm. The wall has an average thickness of 0.2 cm. The dennis-appendiceal soft tissue has a yellow and hemorrhagic cut surface. [place] tissue is submitted as follows: A1. Proximal and mid cross sections (proximal margin = black ink and possible perforation = green) A2-A3. Distal tip, bisected. (A2 = consist of ortiz-white focus) (SWS; 04/09/2019) SHS/SHS . 02 Pathologist provided ICD-10: K35.80 . 02 CPT . 892854 Specimen Comment: A courtesy copy of this report has been sent to Specimen Comment: [phone], , , . Specimen Comment: Report sent to ,DR WAGONER,DR CAN / DR BEGUM Performed at: 01 [facility] [address], [place] [id number] MD Rafiat Negro MD Phone: [phone] Performed at: 02 [facility] [address] [place] [id number] MD Dominguez Drummond MD Phone: [phone]
== END 2019-04-11 17:23 | disposition home or self-care (01) | DRG 854 ==
LOC: ER 19:08 → 4 NORTH 20:30
PROVIDERS: ADMIT Internal Medicine; ATTEND Internal Medicine
PROC: 0DTJ4ZZ Resection of Appendix, Percutaneous Endoscopic Approach (ICD-10-PCS; principal; 2019-04-08 22:30)
DX: A41.9 Sepsis, unspecified organism (principal); K35.891 Other acute appendicitis without perforation, with gangrene; E11.65 Type 2 diabetes mellitus with hyperglycemia; I10 Essential (primary) hypertension; E89.0 Postprocedural hypothyroidism; E87.6 Hypokalemia; I69.392 Facial weakness following cerebral infarction; Z88.0 Allergy status to penicillin; Z88.8 Allergy status to other drugs, medicaments and biological substances; Z90.710 Acquired absence of both cervix and uterus; Z79.899 Other long term (current) drug therapy; Z90.49 Acquired absence of other specified parts of digestive tract
CPT/HCPCS: 36415; 74176; 80048; 80053; 81001; 82550; 82962; 83605; 83690; 85007; 85025; 85610; 87040; 87086; 88304; 96361; 96365; 96375; A7015; J0171; J0330; J0696; J1100; J1650; J1815; J2001; J2405; J2543; J2704; J2710; J3010; J3490; J7030; J7120; 97110; 97112; 97116; 99285-25

== ENCOUNTER → 2019-04-27 | Outpatient (CLI) | payer MEDICARE ==
[2019-04-11 15:00] VITALS: BP 127/81
[~2019-04-27] MED LIST: AMOX1TAB61 PO; ASPI-702 PO; FERR325T14 PO; FLUC150T PO; GLYB5TAB3 PO; HYDR-2761 PO; INDA2.5T PO; LACT1CAP19 PO; LEVO150T5 PO; LEVO175T5 PO; LISI-130 PO; METF10007 PO; SITA100T PO
--- NOTE | 2019-04-27 17:02 | KCIC ---
MR of the right knee HISTORY: Right knee pain for one week. Pain anterior. TECHNIQUE: Routine multiplanar sequences are obtained. FINDINGS: Degenerative tear of the medial meniscus with medial subluxation. Mild meniscal tissue is displaced into the medial tibial recess. No evidence of lateral meniscal tear. Anterior and posterior cruciate ligaments are intact. Medial collateral ligament is intact. Iliotibial band unremarkable. Fibular collateral ligament, biceps femoris tendon and popliteus tendon are intact. Extensor mechanism intact Moderate joint effusion. Severe chondral thinning at the medial patella. Severe cartilage loss at the femoral trochlea with mild subchondral cysts. Severe chondral loss at the medial compartment. Mild degenerative change at the lateral joint. No bone destruction. No acute fracture. Yates's cyst is identified with fluid dissecting into the upper calf and lower thigh. There is generalized soft tissue edema around the cyst. No aggressive bone destruction. No acute fracture. IMPRESSION: 1. Medial meniscal tear with displacement. 2. Severe primary osteoarthritis. 3. Moderate Yates's cyst with dissection/rupture. Electronically signed by: Brenden Alexander MD (04/27/2019 4:58 PM) [id number]
== END | disposition home or self-care (01) ==
LOC: KCIC MRI 15:39
PROVIDERS: ATTEND Nurse Practitioner Family
DX: S83.191A Other subluxation of right knee, initial encounter (principal); S83.241A Other tear of medial meniscus, current injury, right knee, initial encounter; M71.21 Synovial cyst of popliteal space [Baker], right knee; M17.11 Unilateral primary osteoarthritis, right knee; X58.XXXA Exposure to other specified factors, initial encounter; Y93.89 Activity, other specified; Y92.89 Other specified places as the place of occurrence of the external cause; Y99.8 Other external cause status
CPT/HCPCS: 73721

== ENCOUNTER 2019-08-27 13:35 | Emergency (ER) | payer MEDICARE ==
[~2019-08-27] VITALS: Ht 165.1 cm; Wt 74.4 kg
[~2019-08-27 13:35] MED LIST changes: -CEPH-264 PO; -NITR100C62 PO; -ORPH100T PO
--- NOTE | 2019-08-27 14:36 | PHYS DOC ---
Past Medical History Past Medical History: Anxiety, Diabetes-Type II, High Cholesterol, Hypertension, Stroke Past Surgical History: Appendectomy, Hysterectomy Alcohol Use: None Drug Use: None Adult General Chief Complaint Chief Complaint: MECHANICAL FALL HPI HPI Patient is a 74 year old female that presents to the ER after she was walking the legends and fell. The patient states that she does not know why she fell, does not move or tripping. The patient had negative loss consciousness. Patient walk after the accident but is having left hip and left knee pain. Patient doesn't 81 mg aspirin every morning. The patient also has pain around left orbital area as well as patient. Rates her pain as 6 out of 10 in severity and throbbing. Review of Systems Review of Systems Constitutional: Denies fever or chills [] Eyes: Denies change in visual acuity, redness, or eye pain [] HENT: Denies nasal congestion or sore throat [] Respiratory: Denies cough or shortness of breath [] Cardiovascular: No additional information not addressed in HPI [] GI: Denies abdominal pain, nausea, vomiting, bloody stools or diarrhea [] : Denies dysuria or hematuria [] Musculoskeletal: Reports L hip and knee pain. Integument: Reports abrasion to L orbital.] Neurologic: Denies headache, focal weakness or sensory changes [] Endocrine: Denies polyuria or polydipsia [] Complete systems were reviewed and found to be within normal limits, except as documented in this note. Current Medications Current Medications Current Medications Medications (Trade) Dose Ordered Sig/Brenda Start Time Stop Time Status Last Admin Dose Admin Orphenadrine Citrate (Norflex) 30 mg 1X ONCE 08/27/19 17:00 08/27/19 17:01 DC 08/27/19 17:05 30 MG Allergies Allergies Allergies Coded Allergies Type Severity Reaction Last Updated Verified levofloxacin Allergy Severe severe diarrhea 04/09/19 Yes Penicillins Adverse Reaction Intermediate itching 04/08/19 Yes Physical Exam Physical Exam Constitutional: Well developed, well nourished, no acute distress, non-toxic appearance. [] HENT: Normocephalic, edema to L orbital with abrasion, bilateral external ears normal, oropharynx moist, no oral exudates, nose normal. [] Eyes: PERRLA, EOMI, conjunctiva normal, no discharge. [] Neck: Normal range of motion, no tenderness, supple, no stridor. [] Cardiovascular:Heart rate regular rhythm, no murmur [] Lungs & Thorax: Bilateral breath sounds clear to auscultation [] Abdomen: Bowel sounds normal, soft, no tenderness, no masses, no pulsatile masses. [] Skin: Warm, dry, no erythema, no rash. [] Back: No tenderness, no CVA tenderness. [] Extremities: L hip and knee tenderness. Neurologic: Alert and oriented X 3, normal motor function, normal sensory function, no focal deficits noted. [] Psychologic: Affect normal, judgement normal, mood normal. [] Current Patient Data Vital Signs Vital Signs Date Time Temp Pulse Resp B/P (MAP) Pulse Ox O2 Delivery O2 Flow Rate FiO2 08/27/19 15:31 88 16 99 08/27/19 14:06 98.4 171/81 (111) Room Air 98.4 Lab Values Laboratory Tests Test 08/27/19 14:40 08/27/19 16:30 White Blood Count 13.4 x10^3/uL (4.0-11.0) H Red Blood Count 4.61 x10^6/uL (3.50-5.40) Hemoglobin 13.4 g/dL (12.0-15.5) Hematocrit 39.3 % (36.0-47.0) Mean Corpuscular Volume 85 fL (79-100) Mean Corpuscular Hemoglobin 29 pg (25-35) Mean Corpuscular Hemoglobin Concent 34 g/dL (31-37) Red Cell Distribution Width 14.5 % (11.5-14.5) Platelet Count 314 x10^3/uL (140-400) Neutrophils (%) (Auto) 80 % (31-73) H Lymphocytes (%) (Auto) 14 % (24-48) L Monocytes (%) (Auto) 5 % (0-9) Eosinophils (%) (Auto) 0 % (0-3) Basophils (%) (Auto) 1 % (0-3) Neutrophils # (Auto) 10.8 x10^3/uL (1.8-7.7) H Lymphocytes # (Auto) 1.9 x10^3/uL (1.0-4.8) Monocytes # (Auto) 0.7 x10^3/uL (0.0-1.1) Eosinophils # (Auto) 0.1 x10^3/uL (0.0-0.7) Basophils # (Auto) 0.1 x10^3/uL (0.0-0.2) Prothrombin Time 12.0 SEC (11.7-14.0) Prothrombin Time INR 0.9 (0.8-1.1) Activated Partial Thromboplast Time 28 SEC (24-38) Sodium Level 139 mmol/L (136-145) Potassium Level 3.5 mmol/L (3.5-5.1) Chloride Level 99 mmol/L (98-107) Carbon Dioxide Level 31 mmol/L (21-32) Anion Gap 9 (6-14) Blood Urea Nitrogen 16 mg/dL (7-20) Creatinine 1.1 mg/dL (0.6-1.0) H Estimated GFR (Cockcroft-Gault) 48.4 BUN/Creatinine Ratio 15 (6-20) Glucose Level 291 mg/dL (70-99) H Calcium Level 9.0 mg/dL (8.5-10.1) Total Bilirubin 0.4 mg/dL (0.2-1.0) Aspartate Amino Transferase (AST) 16 U/L (15-37) Alanine Aminotransferase (ALT) 26 U/L (14-59) Alkaline Phosphatase 74 U/L (46-116) Troponin I Quantitative < 0.017 ng/mL (0.000-0.055) Total Protein 7.2 g/dL (6.4-8.2) Albumin 3.6 g/dL (3.4-5.0) Albumin/Globulin Ratio 1.0 (1.0-1.7) Urine Collection Type Unknown Urine Color Janis Urine Clarity Clear Urine pH 5.5 Urine Specific Wilber 1.025 Urine Protein 30 mg/dL (NEG-TRACE) Urine Glucose (UA) Negative mg/dL (NEG) Urine Ketones (Stick) Trace mg/dL (NEG) Urine Blood Negative (NEG) Urine Nitrite Negative (NEG) Urine Bilirubin Negative (NEG) Urine Urobilinogen Dipstick 1.0 mg/dL (0.2 mg/dL) Urine Leukocyte Esterase Moderate (NEG) Urine RBC Occ /HPF (0-2) Urine WBC 11-20 /HPF (0-4) Urine Squamous Epithelial Cells Few /LPF Urine Bacteria Few /HPF (0-FEW) Urine Hyaline Casts Moderate /HPF Urine Mucus Marked /LPF Laboratory Tests 08/27/19 14:40 Laboratory Tests 08/27/19 14:40 EKG EKG EKG interpreted by Dr. Mitchell Sinus rate of 88, NO STEMI.[] Radiology/Procedures Radiology/Procedures [] [facility] [address] [place] [address] IMAGING REPORT Signed PATIENT: ALONZO JEAN ACCOUNT: [id number] : 1945 LOCATION: ER AGE: 74 SEX: F EXAM STATUS: REG ER ORD. PHYSICIAN: ANN SORIA APRN REASON: fall, pt fell today left knee pain PROCEDURE: KNEE LEFT 3V Examination: Frontal view the pelvis 2 views of the left hip, 3 views of the left knee HISTORY: History of fall, pain COMPARISON: None available FINDINGS: The left femoral head is within the acetabulum. Mild joint space loss identified in the left hip joint. Moderate joint space loss identified in the medial, lateral, patellofemoral compartments. Mild chondrocalcinosis is identified. IMPRESSION: 1. No acute osseous findings. 2. Mild degenerative changes in joints. Moderate tricompartmental degenerative changes left knee. Electronically signed by: Walter Dozier MD (08/27/2019 2:51 PM) [id number] DICTATED and SIGNED BY: WALTER DOZIER MD DATE: 08/27/19 1451 IMAGING REPORT Signed PATIENT: ALONZO JEAN ACCOUNT: [id number] : 1945 LOCATION: ER AGE: 74 SEX: F EXAM STATUS: REG ER ORD. PHYSICIAN: ANN SORIA APRN REASON: fall, HEAD INJURY PROCEDURE: CT HEAD AND CERVICAL SPINE WO CT HEAD AND CERVICAL SPINE WO Clinical indications: Fall. Head injury. Neck pain. NONCONTRAST HEAD CT COMPARISON: September 19, 2011. Technique: Noncontrast axial cross sectional scanning of the head was performed. PQRS compliance Statement One or more of the following individualized dose reduction techniques were utilized for this study: 1. Automated exposure control 2. Adjustment of the mA and/or kV according to patient size 3. Use of iterative reconstruction technique Findings: No acute intracranial hemorrhage or midline shift or mass-effect or hydrocephalus or extra-axial fluid collection is seen. There is an old appearing infarct of the anterior left centrum semiovale and upper anterior limb of the left internal capsule. It has occurred since 2010. No other focal hypodense area or sulci effacement is seen to indicate an acute infarct or edema radiographically. Left periorbital soft tissue edema and left frontal subcutaneous soft tissue hematoma is seen. No skull fracture or pneumocephalus is seen. No opacification of the mastoid sinuses or the middle ear cavities or the paranasal sinuses is seen. The maxillary sinuses are not completely seen in this study. IMPRESSION: No acute intracranial abnormality is seen. CT STUDY OF THE NECK WITHOUT CONTRAST TECHNIQUE: Noncontrast helical CT scanning of the neck was performed. Multiplanar 2-D reconstructions were generated. FINDINGS: No acute fracture or discitis or lytic process is evident. No anterolisthesis is evident. No perching of facet joints is seen. IMPRESSION: No acute fracture. Electronically signed by: Peyton Moncada MD (08/27/2019 2:57 PM) [email or web address] DICTATED and SIGNED BY: PEYTON MONCADA MD DATE: 08/27/191456 Course & Med Decision Making Course & Med Decision Making Pertinent Labs and Imaging studies reviewed. (See chart for details) Will get labs, EKG, and imaging. Labs, EKG, and imaging is unremarkable. Urine does show moderate leukocytes and when patient ambulated she appears to have pulled a muscle on the left gluteal telma, ordered Norflex. Will write prescription for Norflex and Keflex. Patient stated she was allergic to Keflex, will do Macrobid instead. Dragon Disclaimer Dragon Disclaimer This electronic medical record was generated, in whole or in part, using a voice recognition dictation system. Departure Departure Impression: Primary Impression: Fall Additional Impression: Urinary tract infection Disposition: 01 HOME, SELF-CARE Condition: STABLE Referrals: ALEXEY CAN APRN (PCP) Patient Instructions: Fall Prevention and Home Safety, Urinary Tract Infection Additional Instructions: Thank you for visiting [facility]. We appreciate you trusting us with your care. If any additional problems come up don't hesitate to return to visit us. Please follow up with your primary care provider so they can plan additional care if needed and know about the problem that you had. If symptoms worsen come back to the Emergency Department. Any concerning symptoms that start such as chest pain, shortness of air, weakness or numbness on one side of the body, running high fevers or any other concerning symptoms return to the ER. You have been prescribed an antibiotic today to help fight your infection. Please take all of the antibiotic as directed. If after 48 hours the infection is not improving, please return for more care. If the infection worsens, return to ER for additional care. Please fill your medications at any pharmacy and follow the prescription instructions. Scripts Nitrofurantoin Monohyd/M-Cryst (MACROBID 100 MG CAPSULE) 100 Mg Capsule 1 CAP PO BID for 7 Days, #14 CAP 0 Refills Prov: ANN SORIA APRN 08/27/19 Orphenadrine Citrate (ORPHENADRINE CITRATE) 100 Mg Tablet.er 1 TAB PO BID, #10 TAB Prov: ANN SORIA APRN 08/27/19 Cephalexin (KEFLEX) 500 Mg Capsule 1 CAP PO BID for 7 Days, #14 CAP 0 Refills Prov: ANN SORIA APRN 08/27/19 Problem Qualifiers Primary Impression: Fall Encounter type: initial encounter Qualified Codes: W19.XXXA - Unspecified fall, initial encounter Additional Impression: Urinary tract infection Urinary tract infection type: acute cystitis Hematuria presence: without hematuria Qualified Codes: N30.00 - Acute cystitis without hematuria ANN SORIA APRN Aug 27, 2019 14:36
--- NOTE | 2019-08-27 14:54 | RAD ---
Examination: Frontal view the pelvis 2 views of the left hip, 3 views of the left knee HISTORY: History of fall, pain COMPARISON: None available FINDINGS: The left femoral head is within the acetabulum. Mild joint space loss identified in the left hip joint. Moderate joint space loss identified in the medial, lateral, patellofemoral compartments. Mild chondrocalcinosis is identified. IMPRESSION: 1. No acute osseous findings. 2. Mild degenerative changes in joints. Moderate tricompartmental degenerative changes left knee. Electronically signed by: Walter Dozier MD (08/27/2019 2:51 PM) [id number]
--- NOTE | 2019-08-27 15:00 | RAD ---
CT HEAD AND CERVICAL SPINE WO Clinical indications: Fall. Head injury. Neck pain. NONCONTRAST HEAD CT COMPARISON: September 19, 2011. Technique: Noncontrast axial cross sectional scanning of the head was performed. PQRS compliance Statement One or more of the following individualized dose reduction techniques were utilized for this study: 1. Automated exposure control 2. Adjustment of the mA and/or kV according to patient size 3. Use of iterative reconstruction technique Findings: No acute intracranial hemorrhage or midline shift or mass-effect or hydrocephalus or extra-axial fluid collection is seen. There is an old appearing infarct of the anterior left centrum semiovale and upper anterior limb of the left internal capsule. It has occurred since 2010. No other focal hypodense area or sulci effacement is seen to indicate an acute infarct or edema radiographically. Left periorbital soft tissue edema and left frontal subcutaneous soft tissue hematoma is seen. No skull fracture or pneumocephalus is seen. No opacification of the mastoid sinuses or the middle ear cavities or the paranasal sinuses is seen. The maxillary sinuses are not completely seen in this study. IMPRESSION: No acute intracranial abnormality is seen. CT STUDY OF THE NECK WITHOUT CONTRAST TECHNIQUE: Noncontrast helical CT scanning of the neck was performed. Multiplanar 2-D reconstructions were generated. FINDINGS: No acute fracture or discitis or lytic process is evident. No anterolisthesis is evident. No perching of facet joints is seen. IMPRESSION: No acute fracture. Electronically signed by: Dmitry Moncada MD (08/27/2019 2:57 PM) [email or web address]
[2019-08-27 15:05] LABS: BASO # 0.1 x10^3/uL (0.0-0.2); BASO % 1 % (0-3); EOS # 0.1 x10^3/uL (0.0-0.7); EOS % 0 % (0-3); HEMATOCRIT 39.3 % (36.0-47.0); HEMOGLOBIN 13.4 g/dL (12.0-15.5); LYMPH # 1.9 x10^3/uL (1.0-4.8); LYMPH % 14 % (24-48); MEAN CORPUSCULAR HEMOGLOBIN 29 pg (25-35); MEAN CORPUSCULAR HGB CONC 34 g/dL (31-37); MEAN CORPUSCULAR VOLUME 85 fL (79-100); MONO # 0.7 x10^3/uL (0.0-1.1); MONO % 5 % (0-9); NEUT # 10.8 x10^3/uL (1.8-7.7); NEUT % 80 % (31-73); PLATELET COUNT 314 x10^3/uL (140-400); RED BLOOD COUNT 4.61 x10^6/uL (3.50-5.40); RED CELL DISTRIBUTION WIDTH 14.5 % (11.5-14.5); WHITE BLOOD COUNT 13.4 x10^3/uL (4.0-11.0)
[2019-08-27 15:14] LABS: CREATININE 1.1 mg/dL (0.6-1.0); GFR 48.4; POTASSIUM 3.5 mmol/L (3.5-5.1)
[2019-08-27 15:20] LABS: ALBUMIN 3.6 g/dL (3.4-5.0); TOTAL BILIRUBIN 0.4 mg/dL (0.2-1.0); TOTAL PROTEIN 7.2 g/dL (6.4-8.2)
--- NOTE | 2019-08-27 15:20 | EKG ---
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
[2019-08-27 16:47] LABS: BILIRUBIN,URINE NEGATIVE (NEG); CLARITY,URINE CLEAR; COLOR,URINE AMBER; NITRITE,URINE NEGATIVE (NEG); PH,URINE 5.5; PROTEIN,URINE 30 mg/dL (NEG-TRACE)
[2019-08-27] MEDS ORDERED: ORPHENADRINE CITRATE 60 MG/2 ML VIAL. IV ONE (17:00)
[2019-08-27 17:03] LABS: BACTERIA,URINE FEW /HPF (0-FEW); HYALINE CASTS, URINE MODERATE /HPF; RBC,URINE OCC /HPF (0-2); SQUAMOUS EPITHELIAL CELL,UR FEW /LPF
[2019-08-27] MEDS ORDERED: CEPH-264 PO ×2 (17:09→17:13)
[2019-08-27] MEDS ORDERED: ORPH100T PO ×2 (17:09→17:13)
[2019-08-27 17:16] VITALS: BP 176/80
[2019-08-27] MEDS ORDERED: NITR100C62 PO (17:17)
== END 2019-08-27 17:29 | disposition home or self-care (01) ==
LOC: ER 13:35
DX: S00.212A Abrasion of left eyelid and periocular area, initial encounter (principal); M25.552 Pain in left hip; M25.562 Pain in left knee; N30.00 Acute cystitis without hematuria; F41.9 Anxiety disorder, unspecified; E11.9 Type 2 diabetes mellitus without complications; E78.00 Pure hypercholesterolemia, unspecified; I10 Essential (primary) hypertension; Z86.73 Personal history of transient ischemic attack (TIA), and cerebral infarction without residual deficits; Z90.89 Acquired absence of other organs; Z90.710 Acquired absence of both cervix and uterus; Z88.0 Allergy status to penicillin; Z88.1 Allergy status to other antibiotic agents; W18.39XA Other fall on same level, initial encounter; Y93.01 Activity, walking, marching and hiking; Y99.8 Other external cause status; Y92.89 Other specified places as the place of occurrence of the external cause
CPT/HCPCS: 36415; 70450; 72125; 73502; 73562; 80053; 81001; 84484; 85025; 85610; 85730; 87086; 93005; 96374; 99285; J2360

== ENCOUNTER → 2019-08-27 | Outpatient (CLI) | payer MEDICARE ==
[~2019-08-27] MED LIST changes: +CEPH-264 PO; +NITR100C62 PO; +ORPH100T PO
--- NOTE | 2019-08-27 12:34 | KCIC ---
MRI Cervical Spine Without Contrast History: Numbness and tingling in the left hand Technique: Multiplanar, multi sequential noncontrast MR imaging was performed of the cervical spine. Comparison: November 02, 2013 Findings: There is some motion degradation. Cervical cord caliber is within normal limits without defined or expansile signal abnormality, limited motion for subtle signal change due to motion artifact. Cervical vertebral body stature and AP alignment are unchanged, within normal limits. Intervertebral disc spaces are overall maintained. There is no significant focal marrow edema. C2-C3: Neural foramina and spinal canal are adequate. C3-C4: Neural foramina and spinal canal are adequate. C4-C5: Spinal canal and neural foramina are adequate. C5-C6: There is buckling of the ligamentum flavum. There is minimal disc osteophyte complex with mild indentation upon the ventral thecal sac somewhat greater in the left lateral recess. Central canal is adequate about 11 mm. Neural foramina are adequate. C6-C7: There is buckling of the ligamentum flavum. There is again very minimal disc osteophyte complex. Central canal is borderline about 10 mm. Neural foramina are adequate. There is facet degenerative change. C7-T1: Neural foramina and spinal canal are adequate. Impression: 1. There is no new significant cervical spinal stenosis, borderline narrowing at C6-7. There is no new significant cervical neural foramina compromise. There is mild spondylosis C6-7 and C5-C6. Electronically signed by: Adama Mata MD (08/27/2019 12:31 PM) [id number]
== END | disposition home or self-care (01) ==
LOC: KCIC MRI 11:14
PROVIDERS: ATTEND Nurse Practitioner Family
DX: M48.02 Spinal stenosis, cervical region (principal); M47.812 Spondylosis without myelopathy or radiculopathy, cervical region; M25.78 Osteophyte, vertebrae
CPT/HCPCS: 72141

== ENCOUNTER → 2019-12-16 | Outpatient (CLI) | payer MEDICARE ==
[~2019-12-16] MED LIST changes: -ASPI-702 PO; +ASPI-955 PO; +CEPH-264 PO; +NITR100C62 PO; +ORPH100T PO
--- NOTE | 2019-12-16 15:02 | KCIC ---
Bilateral digital screening mammograms: Reason for examination: Routine screening. Comparison is made to previous studies dated back to 11/08/2016. Interpretation was made with the benefit of CAD. The skin and nipples show no abnormalities. No abnormal axillary lymph nodes are seen. The breast parenchyma shows scattered fibroglandular density. (Breast density: Category B.) There are no dominant masses, suspicious calcifications or architectural distortions. Some benign calcifications are present. Impression: No evidence of malignancy. Recommend routine screening. BI-RADS category 2: Benign "Our facility is accredited by the [employer] Mammography Program." This patient's information has been entered into a reminder system for the patient to be notified with the results of her examination and a target date for the next mammogram. Electronically signed by: Dominique Arnett MD (12/16/2019 2:59 PM) [id number]
== END | disposition home or self-care (01) ==
LOC: KCIC MAMMO 10:53
PROVIDERS: ATTEND Nurse Practitioner Family
DX: Z12.31 Encounter for screening mammogram for malignant neoplasm of breast (principal); N64.89 Other specified disorders of breast
CPT/HCPCS: 77067

== ENCOUNTER → 2020-12-19 | Outpatient (CLI) | payer MEDICARE ==
--- NOTE | 2020-12-19 13:51 | KCIC ---
EXAM: Bilateral digital screening mammogram with tomosynthesis. HISTORY: 75-year-old female presents for screening mammography. TECHNIQUE: Full-field digital craniocaudal and mediolateral oblique 2D and 3D tomosynthesis images of both breasts are obtained for evaluation. Computer aided detection was applied. COMPARISON: 12/18/2018 BREAST PARENCHYMAL DENSITY: Level B - Scattered fibroglandular densities. FINDINGS: There is no new suspicious mass, microcalcification or region of architectural distortion. There are stable areas of nodularity and asymmetry within both breasts. There has been minimal interv al increase in a benign nodular density within the posterior 6:00 position of the left breast. The mi nimal changer fixer a two-year interval favors a benign cystic etiology. There are a few benign calcifi cations. IMPRESSION: BI-RADS Category 2: Benign finding(s). RECOMMENDATION: Annual mammography is recommended. If your mammogram demonstrates that you have dense breast tissue, which could hide abnormalities, and if you have other risk factors for breast cancer that have been identified, you might benefit from s upplemental screening tests that may be suggested by your ordering physician. Dense breast tissue, i n and of itself, is a relatively common condition. This information is not provided to cause undue c oncern, but rather to raise your awareness and to promote discussion with your physician regarding th e presence of other risk factors, in addition to dense breast tissue. A report of your mammography re sults will be sent to you and your physician. You should contact your physician if you have any ques tions or concerns regarding this report. Mammography is a sensitive method for finding small breast cancers, but it does not detect them all a nd is not a substitute for careful clinical examination. A negative mammogram does not negate a clin ically suspicious finding and should not result in delay in biopsying a clinically suspicious abnorma lity. PQRS compliance statement - Patient information was entered into a reminder system with a target due date for the next mammogram. "Our facility is accredited by the [employer] Mammography Program." Electronically signed by: Hellen Tejada MD (12/19/2020 1:48 PM) [email or web address]
== END ==
LOC: KCIC MAMMO 12:35
PROVIDERS: ATTEND Nurse Practitioner Family
DX: Z12.31 Encounter for screening mammogram for malignant neoplasm of breast (principal); N64.89 Other specified disorders of breast; R92.1 Mammographic calcification found on diagnostic imaging of breast
CPT/HCPCS: 77063; 77067

== ENCOUNTER → 2021-03-15 | Outpatient (CLI) | payer MEDICARE ==
--- NOTE | 2021-03-15 15:42 | KCIC ---
Right breast diagnostic digital mammograms: Reason for examination: Right breast lump for 3 weeks after fall. Comparison is made to previous studies dated back to 12/17/2017. Interpretation was made with the benefit of CAD. The skin and nipple show no abnormalities. No abnormal axillary lymph nodes are seen. The breast pare nchyma shows scattered fibroglandular density. (Breast density: Category B.) There is some subtle nod ularity at the 12:00 B position in the area of clinical concern. This will be further evaluated with ultrasound. There continues to be a small circumscribed nodule present medially in the right breast o n cc view which is unchanged. There are no other dominant masses, suspicious calcifications or lora ectural distortions. Some benign calcifications are present. Impression: Subtle nodularity at the 12:00 B position which corresponds to the area of mammographic concern. Ultr asound to follow. BI-RADS category 0: Incomplete. Needs additional imaging evaluation. Right breast ultrasound: Ultrasound examination was performed with attention to the area of clinical and mammographic concern and the right axilla. At the 12:00 position 5.5 cm from the nipple, there is a subtle area of heterogeneous echogenicity wi th some small cystic components. The appearance is consistent with a small hematoma. No other cystic or solid lesions are seen. No abnormal appearing lymph nodes are seen in the axilla. IMPRESSION: Subtle area of heterogeneous echogenicity at the 12:00 position 5.5 cm from the nipple which correspo nds to the area of clinical concern and probably represents an area of hematoma. Recommend clinical c orrelation and follow-up with ultrasound in 3 months. BI-RADS Category 3: Probably Benign. "Our facility is accredited by the [employer] Mammography [employer]." This patient's information has been entered into a reminder system for the patient to be notified wit h the results of her examination and a target date for the next mammogram. Electronically signed by: Dominique Arnett MD (03/15/2021 3:39 PM) [email or web address]
== END ==
LOC: KCIC MAMMO 12:40
PROVIDERS: ATTEND Nurse Practitioner Family
DX: N63.11 Unspecified lump in the right breast, upper outer quadrant (principal)
CPT/HCPCS: 76641; 77065

== ENCOUNTER → 2021-07-03 | Outpatient (CLI) | payer MEDICARE ==
[~2021-07-03] MED LIST changes: -ASPI-955 PO; +ASPI81TA48 PO
--- NOTE | 2021-07-03 14:40 | KCIC ---
XR SHOULDER_RIGHT 2+ VIEWS 07/03/2021 Reason: Rt shoulder pain, pt. fell 07/02/21 Comparison: None Technique: 3 views of the right shoulder Findings: There is no acute fracture or dislocation. The glenohumeral joint is well maintained. Mild degenerati ve change of the acromioclavicular joint. Surrounding soft tissues are within normal limits. Impression: No acute osseous abnormality. Electronically signed by: Oliver Rivers (07/03/2021 2:37 PM) [id number]
== END ==
LOC: KCIC 09:23
PROVIDERS: ATTEND Nurse Practitioner Family
DX: M19.011 Primary osteoarthritis, right shoulder (principal)
CPT/HCPCS: 73030

== ENCOUNTER → 2021-10-03 | Outpatient (CLI) | payer MEDICARE ==
--- NOTE | 2021-10-03 13:24 | KCIC ---
EXAM: Left hand, 3 views. HISTORY: Pain. COMPARISON: None. FINDINGS: 3 views of the left hand are obtained. There is no acute fracture, dislocation or subluxati on. There is a tiny calcification or ossicle adjacent to the second metacarpal head. There is degener ative spurring involving the first interphalangeal joint. IMPRESSION: No acute osseous finding. Mild first interphalangeal joint osteoarthritis. Electronically signed by: Hellen Tejada MD (10/03/2021 1:21 PM) [id number]
== END ==
LOC: KCIC 11:13
PROVIDERS: ATTEND Nurse Practitioner Family
DX: M19.042 Primary osteoarthritis, left hand (principal); M77.8 Other enthesopathies, not elsewhere classified
CPT/HCPCS: 73130

== ENCOUNTER → 2021-12-27 | Outpatient (CLI) | payer MEDICARE ==
--- NOTE | 2021-12-27 13:25 | KCIC ---
Bilateral digital screening mammograms with 3-D tomosynthesis: Reason for examination: Routine screening. Comparison is made to previous studies dated back to 11/08/2016. Bilateral mammograms in CC and oblique projections were obtained with 2-D imaging and 3-D tomosynthes is imaging on a Siemens Inspiration unit and reviewed on the workstation. Interpretation was made wit h the benefit of CAD. The skin and nipples show no abnormalities. No abnormal axillary lymph nodes are seen. The breast par enchyma shows scattered fatty and fibroglandular density. (Breast density: Category B.) There appears to be new 8 mm nodule present at the 4:00 position of the left breast 9 cm from the nipple. There ar e no other dominant masses, suspicious calcifications or architectural distortion. Benign calcificati ons are present. Impression: No suspicious abnormality seen in the right breast. New 8 mm nodule at the 4:00 position of the left breast 9 cm from the nipple. Ultrasound to follow. BI-RAD Category 0: Incomplete. Needs additional imaging evaluation. Left breast ultrasound: Ultrasound examination of the left breast and axilla was performed. At the 4:00 position 4.5 cm from the nipple, there is a 6.3 x 4.5 mm hypoechoic circumscribed nodule with a fibrocystic appearance. At the 3:30 position 7 cm from the nipple, there is a 7 mm hypoechoic circumscribed nodule in parallel orientation with a fibrocystic appearance. No suspicious nodules are seen. No abnormal appearing lymph nodes are seen in the axilla. IMPRESSION: Small benign-appearing fibrocystic lesions at 3:30 and 4:00 positions of the left breast. Recommend 6 month follow-up with ultrasound. BI-RADS Category 3: Probably Benign. "Our facility is accredited by the [employer] Mammography Program." This patient's information has been entered into a reminder system for the patient to be notified wit h the results of her examination and a target date for the next mammogram. Electronically signed by: Dominique Arnett MD (12/27/2021 1:23 PM) [email or web address]
== END ==
LOC: KCIC MAMMO 09:27
PROVIDERS: ATTEND Nurse Practitioner Family
DX: N63.23 Unspecified lump in the left breast, lower outer quadrant (principal)
CPT/HCPCS: 76641; 77066; G0279; 77062

== ENCOUNTER → 2022-02-07 | Outpatient (CLI) | payer MEDICARE ==
--- NOTE | 2022-02-08 08:14 | KCIC ---
Study: DG BARIUM SWALLOW Indication: Dysphagia. Comparison: None. Technique/Findings: Thick and thin barium administered by mouth with the patient upright and supine. Real time fluoroscop ic evaluation of the esophagus with obtainment of intermittent spot images. Fluoroscopy time: 2 minutes 1 second Fluoroscopic images: 16 No stricture, hiatal hernia or fluoroscopic evidence for an esophageal mass. Diminished esophageal co ntractility with a weakened primary stripping wave. Tertiary contractions. No active reflux event was observed. Contrast remained within the esophagus up to the upper third in between swallows. The part ially assessed stomach and duodenum are unremarkable. Normally located ligament of Treitz. Impression: 1. No structural abnormality such as a stricture or fluoroscopically apparent mass to account for rep orted dysphagia. No hiatal hernia. 2. Diminished esophageal contractility with a weak primary stripping wave. Tertiary contractions. Tho ugh no active reflux event was observed long-standing reflux remains possible to account for the find ings. Correlate with patient history and symptoms. Electronically signed by: GUILLERMINA BAKER MD (02/08/2022 8:12 AM) [id number]
== END ==
LOC: KCIC 09:38
PROVIDERS: ATTEND Nurse Practitioner Family
DX: R13.10 Dysphagia, unspecified (principal)
CPT/HCPCS: 74220

== ENCOUNTER → 2022-03-21 | Outpatient (CLI) | payer MEDICARE ==
--- NOTE | 2022-03-21 15:38 | KCIC ---
EXAM: Chest, 2 views. HISTORY: Difficulty breathing. COMPARISON: None. FINDINGS: 2 views of the chest are obtained. There are slight decreased lung volumes with associated vascular crowding and atelectasis. There is no consolidation, pleural effusion or pneumothorax. The h eart is normal in size. IMPRESSION: Slight decreased lung volumes with interstitial prominence likely due to atelectasis and vascular crowding. No consolidated pneumonia is seen. Electronically signed by: Hellen Tejada MD (03/21/2022 3:36 PM) [id number]
== END ==
LOC: KCIC 15:21
PROVIDERS: ATTEND Nurse Practitioner Family
DX: J98.11 Atelectasis (principal); J84.89 Other specified interstitial pulmonary diseases; R06.89 Other abnormalities of breathing
CPT/HCPCS: 71046